=== PATIENT | female | born 1935 | race Caucasian/White ===

== ENCOUNTER 2016-09-16 17:54 | Inpatient (IN) | payer MEDICARE, OTHER ==
[~2016-09-16] VITALS: Ht 162.6 cm; Wt 86.0 kg
[~2016-09-16 17:54] MED LIST: ALDA25TA2 PO; AMLO10TA PO; ASPI1TAB PO; ATOR40TA PO; AVAP300T23 PO; BENI40TA5 PO; CALCTAB68 PO; CLON-412 PO; CORE25TA PO; EXEM25TA PO; GLIP10TA6 PO; HYGROTON PO; LANTINJ4 SC; LORA-376 PO; MAGN64TASA PO; METF500T PO; METO100T PO; PARO20TA2 PO; TYLE325T5 PO
[2016-09-16 19:35] LABS: BASO % 0.6 % (0.0-1.0); EOS # 0.2 K/mm3 (0.0-0.50); EOS % 2.8 % (0.0-3.0); LARGE UNSTAINED CELL # 0.1 K/mm3 (0.0-0.4); LARGE UNSTAINED CELL % 1.1 % (0.0-4.0); LYMPH # 1.1 K/mm3 (1.5-4.5); LYMPH % 15.4 % (24.0-44.0); MEAN CORPUSCULAR HEMOGLOBIN 29.6 pg (27.0-33.0); MEAN CORPUSCULAR HGB CONC 32.6 g/dl (32.0-36.5); MEAN CORPUSCULAR VOLUME 90.8 fl (80.0-96.0); MONO # 0.3 K/mm3 (0.0-0.8); MONO % 3.6 % (0.0-5.0); NEUTROPHILS # 5.3 K/mm3 (1.8-7.7); NEUTROPHILS % 76.5 % (36.0-66.0); PLATELET COUNT, AUTOMATED 200 k/mm3 (150-450); RED CELL DISTRIBUTION WIDTH 13.7 % (11.5-14.5); WHITE BLOOD COUNT 6.9 K/mm3 (4.0-10.0)
[2016-09-16 19:38] LABS: INR 0.94
[2016-09-16 19:42] LABS: CALCIUM LEVEL 9.4 MG/DL (8.8-10.2); CREATININE FOR GFR 1.24 MG/DL (0.55-1.02); GLOMERULAR FILTRATION RATE 44.3 (>32); POTASSIUM SERUM 4.4 MEQ/L (3.5-5.1)
--- NOTE | 2016-09-16 20:10 | REPUSA ---
CLINICAL HISTORY: DYSARTHRIA. TECHNIQUE: Multiple axial CT images were obtained through the brain without IV contrast material. COMMENTS: There is normal configuration of sella turcica. There are no intra or extra-axial collections. There is no mass effect or midline shift. There is no evidence of hematoma formation. No hydrocephalus is p resent. The ventricles are symmetrical. No abnormal calcifications are present. There is diffuse age-appropriate cerebellar and cerebral atrophy with proportionally dilated ventricl es and cortical sulci. There are bilateral periventricular and subcortical white matter hypolucencies compatible with mild c hronic microvascular disease. Otherwise, no significant focal abnormalities are seen either in the posterior fossa or supratentoria l compartment. IMPRESSION: 1. Age-appropriate cerebellar and cerebral atrophy. 2. Mild chronic microvascular disease. 3. No evidence of acute intracranial pathology. Thank you for your kind referral of this patient.
[2016-09-16] MEDS ORDERED: HumaLOG INSULIN (NovoLOG) PER UNIT SC SCH (21:00)
[2016-09-16] MEDS: MAGNESIUM CHLORIDE 64 MG TABCR (SLO MAG) PO SCH (21:00)
[2016-09-16] MEDS ORDERED: ATORVASTATIN 20 MG TAB PO SCH (21:00)
[2016-09-16] MEDS ORDERED: GLUCAGON FOR INJ 1 MG VIAL (J1610) SC PRN (23:15)
[2016-09-16] MEDS ORDERED: DEXTROSE 50% 50 ML SYRINGE IV PRN (23:15)
[2016-09-16] MEDS ORDERED: GLUCOSE 4 GM CHEW TABLET PO PRN (23:15)
[2016-09-17] MEDS ORDERED: IRBE150T12 PO
[2016-09-17] MEDS ORDERED: CHLO125TA PO
[2016-09-17] MEDS ORDERED: METF1000 PO
[2016-09-17] MEDS ORDERED: VITMTA PO (00:02)
[2016-09-17] MEDS ORDERED: POTA10CA PO (00:02)
[2016-09-17] MEDS ORDERED: GABA300C3 PO (00:02)
--- NOTE | 2016-09-17 00:30 | REPUSA ---
CLINICAL HISTORY: Transient ischemic attack. COMMENTS: Real time sonography with duplex Doppler of the carotid arteries bilaterally is performed without [place] or studies for comparison. Bilateral atheromatous plaques of the common carotid arteries extending to the internal and external carotid arteries. Normal peak systolic velocities are noted. Antegrade flow in the vertebral arteries. IMPRESSION: Bilateral less than 50% narrowing of the internal carotid arteries. Thank you for your kind referral of this patient.
[2016-09-17 01:10] VITALS: BP 152/79
[2016-09-17] MEDS ORDERED: ACETAMINOPHEN TAB 650MG DOSE (2X325MG) PO PRN (02:15)
[2016-09-17] MEDS: POTASSIUM CHLORIDE 10 MEQ SR TABLET PO SCH ×2 (02:41→08:37)
[2016-09-17] MEDS: GABAPENTIN 300 MG CAP PO SCH ×3 (02:41→17:34)
[2016-09-17] MEDS: LORazepam 0.5 MG TAB PO SCH ×2 (02:41→08:37)
[2016-09-17 04:19] VITALS: BP 131/73
[2016-09-17 05:45] LABS: BASO % 0.4 % (0.0-1.0); EOS # 0.1 K/mm3 (0.0-0.50); EOS % 2.2 % (0.0-3.0); LARGE UNSTAINED CELL # 0.1 K/mm3 (0.0-0.4); LARGE UNSTAINED CELL % 1.2 % (0.0-4.0); LYMPH # 1.1 K/mm3 (1.5-4.5); LYMPH % 16.2 % (24.0-44.0); MEAN CORPUSCULAR HEMOGLOBIN 29.6 pg (27.0-33.0); MEAN CORPUSCULAR HGB CONC 32.5 g/dl (32.0-36.5); MEAN CORPUSCULAR VOLUME 91.2 fl (80.0-96.0); MONO # 0.3 K/mm3 (0.0-0.8); PLATELET COUNT, AUTOMATED 191 k/mm3 (150-450); RED CELL DISTRIBUTION WIDTH 13.8 % (11.5-14.5); WHITE BLOOD COUNT 6.6 K/mm3 (4.0-10.0)
[2016-09-17 05:53] LABS: ALBUMIN 3.5 GM/DL (3.2-5.2); ALBUMIN/GLOBULIN RATIO 1.03 (1.00-1.93); BILIRUBIN,TOTAL 0.5 MG/DL (0.2-1.0); CALCIUM LEVEL 8.8 MG/DL (8.8-10.2); CREATININE FOR GFR 1.17 MG/DL (0.55-1.02); GLOMERULAR FILTRATION RATE 47.4 (>32); MAGNESIUM LEVEL 2.3 MG/DL (1.8-2.4); POTASSIUM SERUM 4.4 MEQ/L (3.5-5.1); TOTAL PROTEIN 6.9 GM/DL (6.4-8.2)
--- NOTE | 2016-09-17 06:35 | HPE ---
DATE OF ADMISSION: 09/16/2016 REASON FOR ADMISSION: Transient ischemic attack (TIA) like symptoms. PRIMARY CARE PROVIDER: Dr. Celeste. 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 The patient's daughter was over at the house to bring her father into the hospital for shortness of breath when she noted that her mom started to have an unsteady gait and confused speech. She checked her blood pressure and it was found to be elevated. She called the ambulance and brought her mother into the hospital. In the emergency room, the patient underwent a CT scan which showed age appropriate cerebral and cerebellar atrophy, mild chronic microvascular disease, no evidence of acute pathology. Vascular ultrasound was also done and showed bilateral less than 50% narrowing of the internal carotids. Blood pressure on arrival was slightly elevated at 161/79, but had improved to 140/71 on repeat. The hospitalist was called for the admission for observation for possible TIA-like symptoms. Upon my exam, the patient did not have any confusion at this time or slurred speech. She had no focal deficits. Denied any chest pain or shortness of breath. Denied any nausea or vomiting. Denied any diaphoresis or chills. Denied any urinary or bowel incontinence. Denied any paresthesias or tingling. REVIEW OF SYSTEMS: 12-point review of systems was obtained, all of which was negative except for those mentioned above. PAST MEDICAL HISTORY: Significant for third degree heart block, diabetes, hypertension, aortic regurgitation, breast cancer a year ago, hyperlipidemia, hypothyroidism, and anxiety. PAST SURGICAL HISTORY: Significant for pacemaker placement, bilateral knee surgery and cataract surgery. ALLERGIES: CODEINE. SOCIAL HISTORY: The patient denies any alcohol or tobacco use. HOME MEDICATIONS (include): - Tylenol 650 mg by mouth every 4 hours as needed for pain - Norvasc 10 mg by mouth daily - aspirin 81 mg by mouth daily - atorvastatin 40 mg by mouth at bedtime - chlorthalidone 12.5 mg by mouth daily - gabapentin 300 mg by mouth three times a day - glipizide 10 mg by mouth twice a day - Lantus 18 units subcutaneously at night - irbesartan 150 mg by mouth daily - lorazepam 0.5 mg by mouth twice a day - magnesium chloride 64 mg tablet by mouth twice a day - metformin 500 mg by mouth daily and 1000 mg by mouth at bedtime - multivitamin 1 tablet by mouth daily - paroxetine 20 mg by mouth daily - potassium chloride 10 mEq by mouth twice a day - spironolactone 25 mg by mouth daily FAMILY HISTORY: Noncontributory. PHYSICAL EXAMINATION: Vitals: On admission, blood pressure was 161/79, temperature 97, pulse 76, respiratory rate 18, pulse oximetry 97% on room air. HEENT: Pupils equal round and react to light and accommodation. Neck supple. No jugular venous distention (JVD). Lungs: Clear to auscultation (CTA) bilaterally. Abdomen: Soft, nontender, nondistended. Extremities: No clubbing, cyanosis or edema. Neurologic: Cranial nerves II-XII grossly intact. No focal deficits. LABORATORY FINDINGS: WBC 6.9, hemoglobin 12.5, hematocrit 38.1, platelet count 200. Sodium 142, potassium 4.4, chloride 104, BUN 22, creatinine 1.24, fasting glucose 163, INR 0.94. CT scan as above. Carotid ultrasound as above. ASSESSMENT/PLAN: 1. Transient ischemic attack like symptoms which had resolved by the time the patient arrived to the emergency room. There is no documentation of any focal deficits. The patient is able to move arms and legs. No signs of facial droop. Speech appears to be normal. We will continue to monitor on telemetry. The patient was unable to get a MRI due to patient having a pacemaker. CT scan was unremarkable. We will order a morning lipid panel. Continue neurologic checks every 4 hours. 2. History of hypertension. We will resume the patient's home medications. 3. History of lower extremity edema. Will continue the patient's spironolactone. 4. History of diabetes. Will start the patient on sliding scale with Accu-Cheks before meals and at bedtime. Consistent carbohydrate diet. 5. History of hyperlipidemia. Continue Lipitor 40 mg by mouth daily. 6. History of anxiety. Continue the patient's home medications. 7. Deep vein thrombosis (DVT) prophylaxis. Sequential compression devices (SCDs) while in bed.
[2016-09-17 08:00] VITALS: BP 138/74
[2016-09-17] MEDS: MAGNESIUM CHLORIDE 64 MG TABCR (SLO MAG) PO SCH (08:34)
[2016-09-17] MEDS: HumaLOG INSULIN (NovoLOG) PER UNIT SC SCH ×3 (08:35→17:35)
[2016-09-17] MEDS ORDERED: CARVedilol 12.5 MG TAB PO SCH (09:00)
[2016-09-17] MEDS ORDERED: IRBESARTAN 150 MG TAB PO SCH (09:00)
[2016-09-17] MEDS ORDERED: PARoxetine 20 MG TAB PO SCH (09:00)
[2016-09-17] MEDS ORDERED: SPIRONOLACTONE 25 MG TAB PO SCH (09:00)
[2016-09-17] MEDS ORDERED: CHLORTHALIDONE 12.5MG PER 1/2 TABLET PO SCH (09:00)
[2016-09-17] MEDS ORDERED: ASPIRIN 81 MG ENTERIC TAB PO SCH (09:00)
[2016-09-17] MEDS ORDERED: amLODIPine 10 MG TAB PO SCH (09:00)
[2016-09-17] MEDS ORDERED: MULTIVITAMINS/MINERALS THERAP 1 TAB PO SCH (09:00)
[2016-09-17] MEDS ORDERED: ENOXAPARIN 30 MG/0.3 ML SYR (J1650) SC SCH (09:00)
--- NOTE | 2016-09-17 10:57 | IPN ---
DATE: 09/17/2016 Time patient was seen was at 9 a.m. Patient has been seen and examined at bedside. No acute event overnight. Patient, however does have tachycardia on the event strips. Patient, herself feels better. Denies any chest pain, trouble breathing, abdominal pains, nausea , vomiting, diarrhea, or constipation. Denies any weakness on any side of her body. Admits to numbness at her heels, which was chronic. Denies any changes in vision, smell, hearing or taste. PHYSICAL EXAMINATION: VITAL SIGNS: Temperature 97.6, pulse 66, respirations 18, blood pressure 138/74 , and oxygen was satting 95% on room air. GENERAL: Patient is a pleasant, elderly female who was alert, awake, oriented times three, does not appear to be in distress, resting comfortably in bed with head elevated at 45 degree angle. HEENT: Normocephalic, atraumatic. Extraocular motor intact. Mucosa moist. NECK: Supple. No neck lymphadenopathy. CARDIOVASCULAR: Regular rate and rhythm. S1, S2. Patient does have a 3/6 systolic heart murmur. LUNGS: Clear to auscultate bilaterally. No wheeze, rales or rhonchi. ABDOMEN: Positive bowel sounds. Soft. Nontender. Nondistended. No peritoneal signs. No ecchymosis. EXTREMITIES: No edema, clubbing or cyanosis. SKIN: Warm and dry. NEUROLOGIC: Cranial nerves II-XII intact. Qatmou-cf-vnca was somewhat sluggish on both side. However, there is no change of sensation. Muscle strength was 5/ 5 in bilateral upper and lower extremity. PSYCHIATRIC: Normal mood and affect. LABORATORY DATA: WBC 6.6, hemoglobin 12.1, hematocrit is 37.2, with platelet count of 191 and MCV of 91.2. Sodium 141, potassium 4.4, chloride 104, bicarbonate 29, anion gap 8, BUN 17, creatinine 1.17, GFR 47.4, fasting glucose 171, calcium 8.8, magnesium 2.3, AST 18, ALT 29, alkaline phosphatase 115, total protein 6.9, albumin 3.5, triglyceride 109, cholesterol 127, LDL 61.2, HDL 44. Patient's PT yesterday was 12.7, INR 0.94, PTT 28.1. Accu-Chek glucose last night was 168. Patient does have a carotid duplex ultrasound. It shows bilateral less than 50% narrowing of internal carotid artery. Patient had a CT head without contrast yesterday at 7:20. It shows age-appropriate cerebellar and cerebral palsy. Mild chronic microvascular disease. No evidence of acute intracranial pathology. ASSESSMENT AND PLAN: 80-year-old female with past medical history of third degree heart block, diabetes, hypertension, aortic regurgitation, breast cancer a year ago, hyperlipidemia, hypothyroidism, anxiety, pacemaker, presented with: 1. Transient ischemic attack (TIA). Resolved by the time patient arrived patient arrived in the emergency room (ER). Patient does not have any neurological changes this morning. CT scan of the head was unremarkable last night. Patient was unable to have MRI due to pacemaker. Patient's repeat head scan has been ordered for tomorrow. Patient's lipid panel was within normal limits. Continue neuro checks. We will also order an echo, physical therapy (PT), occupational therapy (OT) and continue to monitor patient. 2. History of hypertension. Will continue patient's home medications. 3. History of lower extremity edema. Continue spironolactone. 4. History of diabetes. Continue patient on sliding scale with Accu-Cheks before meals and at bedtime with consistent carbohydrate diet. 5. Hyperlipidemia. Continue Lipitor. 6. History of anxiety. Continue home medication. 7. Deep vein thrombosis (DVT) prophylaxis. Sequential compression devices (SCDs). Will repeat CT head tomorrow. DISPOSITION: Will followup with repeat CT head. Will followup with echo and PT , OT and continue to monitor patient. Continue neuro check. Patient has been discussed with attending doctor, Dr. Sargent. My preceptor for this patient encounter was Rebecca Sargent MD. The preceptor was physically present in the building during the encounter and was fully available. As needed, all aspects of the patient interview, examination, medical decision making process, and medical care plan development were reviewed and approved by the preceptor. The preceptor is aware and concurs with the plan as stated in the body of this note and will attest to such by his/her co-signature. Addendum: Patient was found to be suddenly hypotensive later in the afternoon. Dr. Sargent ordered Cardiac markers and found patient to have elevated troponin 2.9. Patient was then emergently transferred out for the NSTEMI I have both independently examined this patient as well as reviewed the note. I have discussed in detail with the resident the findings and plan of treatment as documented in the residents note. I will continue to follow the patient and offer further guidance to the patients care as necessary during this hospital stay. Rebecca TAM
[2016-09-17] MEDS ORDERED: SLF 3 ML SYR IV PRN (11:30)
[2016-09-17 12:00] VITALS: BP 116/63
[2016-09-17 12:20] VITALS: BP 130/72
[2016-09-17] MEDS ORDERED: SLF 3 ML SYR IV SCH (14:00)
[2016-09-17] MEDS ORDERED: NS 1,000 ML IV SCH (15:15)
--- NOTE | 2016-09-17 15:35 | REP ---
CT HEAD WITHOUT CONTRAST: HISTORY: TIAs. COMPARISON: 09/16/2016 Areas of decreased attenuation are present in the periventricular white matter. This represents small vessel ischemic disease. There is no intraparenchymal hemorrhage, mass or midline shift. The ventricular system and cortical sulci are dilated consistent with minimal volume loss. There is no extracerebral collection. The visualized sinuses are clear. IMPRESSION: 1. Small vessel ischemic disease. 2. Minimal volume loss. Signed by Darwin German MD 09/17/2016 03:37 P
[2016-09-17 15:46] LABS: ABG BASE EXCESS 3.2 (-2.0-2.0); ABG HCO3 27.5 MEQ/L (22.0-26.0); ABG PARTIAL PRESSURE CO2 40.7 mmHg (35.0-45.0); ABG STANDARD HCO3 27.2 MEQ/L (22.0-26.0); ABG TOTAL CO2 28.7 MEQ/L (23.0-31.0); ABG pH (ARTERIAL) 7.447 UNITS (7.350-7.450)
[2016-09-17 16:00] VITALS: BP 125/63
[2016-09-17] MEDS ORDERED: CLOPIDOGREL 75 MG TAB PO STA (16:37)
--- NOTE | 2016-09-17 17:16 | ECGEPIP ---
Stationary ECG Study [facility] Test Date: 2016-09-17 Pat Name: JONH VILLEGAS Department: Room: [place] [address] Gender: F Architecture Analyst: GHANSHYAM : 1935 Requested By: WICHO BENNETT Order Number: [id number] Reading MD: Emily Dawkins Measurements Intervals [place] Rate: 62 P: 58 [place]: 164 QRS: -89 QRSD: 194 T: 44 QT: 499 QTc: 510 Interpretive Statements ELECTRONIC VENTRICULAR PACEMAKER NSR ABNORMAL RHYTHM ECG MORE V PACING NO ATRIAL PACING C/W 10/20/14 Electronically Signed On 09-17-2016 17:15:48 EST by Emily Dawkins
[2016-09-17] MEDS ORDERED: CLOP75TA2 PO (17:32)
[2016-09-17] MEDS ORDERED: AVAP75TA PO (17:32)
[2016-09-17] MEDS ORDERED: CARV6.25 PO (17:32)
--- NOTE | 2016-09-17 19:10 | DSES ---
DATE OF ADMISSION: 09/16/2016 DATE OF DISCHARGE: Patient is transferred to [facility] for possible cardiac catheterization September 17, 2016. PRIMARY CARE PROVIDER: Dr. Celeste NEUROLOGIST: Dr. Guerrero SEWER SYSTEM SUPERVISOR: Dr. Spencer FINAL DIAGNOSES: Non-ST elevation myocardial infarction (NSTEMI). Transient ischemic attack (TIA). Hypertension. History of lower extremity edema. History of diabetes, type 2. History of dyslipidemia. Anxiety. HISTORY OF PRESENT ILLNESS: This is an 80-year-old female patient with underlying medical history of third-degree heart block with pacemaker, type 2 diabetes, hypertension, aortic regurgitation, who presented to the emergency room with her daughter after she was having TIA symptoms. The patient's daughter, who is a nurse, was in the process of bringing her to the hospital for shortness of breath and had noticed that the patient's mother was unsteady and confused with slurred speech, with also left arm weakness. Subsequently, called ambulance and brought her mother into the hospital. The patient underwent CT scan, which were negative other than some age-appropriate changes and cerebral atrophy and microvascular changes. No evidence of acute pathology. Ultrasound Doppler of the carotids shows bilateral less than 50% narrowing of internal carotid. Blood pressure on arrival was 161/79. The patient has subsequently improved. Hospitalist was called for admission of the patient to the hospital. The patient was admitted to the hospital, given aspirin, and the patient's aspirin and statin was continued. Echocardiogram was ordered. Neurologic check was observed. The patient's lab was repeated and followed. The patient's blood pressure medication was restarted. During the day today, the patient had an episode of increasing lethargy and confusion again. At that time, blood pressure was 90/50 and the patient was not tachycardic with heart rate of 64. The patient was alert and oriented at that time but was just sleepy and drowsy. Subsequently, CT head was repeated as well as given intravenous (IV) fluids and EKG was done showing ventricular paced rhythm and cardiac enzyme was also sent. Cardiac enzyme returned with a troponin of 2.99. Subsequently, the case was discussed with Dr. Spencer. Given patient with diabetes and EKG showing ventricular (v) pace, the patient could have a silent ischemic myocardial event, given patient did admit with TIA, repeat CT scan was negative. Case was discussed with Dr. Spencer and Dr. Guerrero. Plavix loading of 150 mg was given and the patient was placed on aspirin and Plavix and Lipitor, aspirin 81 mg, Plavix 75 mg and Lipitor 40 mg by mouth nightly. [facility] was contacted for transfer. The patient's blood pressure medication was also discontinued and adjusted. The patient's blood pressure subsequently improved ,and the patient's mental status returned to baseline. The decision was made that the patient should be transferred for possible catheterization at [facility] and recommended by Dr. Spencer. Subsequently, arrangements are made for the patient to be transferred to [facility]. VITAL SIGNS: Temperature 97.3, pulse 64, respirations 20, blood pressure 125/63, pulse oximetry 95% on room air. LABORATORY: WBC 6.6, hemoglobin and hematocrit 12.1 over 37.2, platelets 191. Chemistry: Sodium 141, potassium 4.4, chloride 104, bicarbonate 29, BUN 17, creatinine 1.17, total CK 170, troponin 2.99. DISCHARGE MEDICATIONS: - Coreg 6.25 mg by mouth twice a day - Plavix 75 mg by mouth daily - Avapro 75 mg by mouth daily, decreased from 150 mg - acetaminophen 650 mg by mouth nightly - aspirin 81 mg by mouth daily - Lipitor 40 mg by mouth daily - vitamin D one tablet by mouth daily - gabapentin 300 mg by mouth three times a day - glipizide 10 mg by mouth twice a day - Lantus insulin 18 units subcu nightly - The patient was on Ativan 0.5 mg by mouth twice a day at home. - magnesium chloride 64 mg by mouth twice a day - metformin 500 mg by mouth daily; metformin has been on hold given possibility of cardiac catheterization - multivitamin one tablet by mouth daily - Paxil 20 mg by mouth daily - potassium chloride 10 mEq by mouth twice a day - spironolactone 25 mg by mouth daily DISCHARGE INSTRUCTIONS: The patient was instructed to followup with Cardiology at [facility] for further care, followup with telemetry monitoring, neurologic checks, further care as per cardiology and [facility], followup with primary care provider after discharge as well as cardiology after discharge and neurology after discharge. YONATAN
--- NOTE | 2016-09-17 20:30 | ECGEPIP ---
Stationary ECG Study [facility] - ED Test Date: 2016-09-16 Pat Name: JONH VILLEGAS Department: Room: [place] [address] Gender: F Application Manager: ruiz : 1935 Requested By: GRACIA ADLER Order Number: [id number] Reading MD: Damon Reyes Measurements Intervals [place] Rate: 70 P: 85 [place]: 170 QRS: -89 QRSD: 194 T: 37 QT: 468 QTc: 508 Interpretive Statements ELECTRONIC VENTRICULAR PACEMAKER ABNORMAL RHYTHM ECG Electronically Signed On 09-17-2016 20:30:05 EST by Damon Reyes
[2016-09-17] MEDS ORDERED: CARVedilol 6.25 MG TAB PO SCH (21:00)
[2016-09-17] MEDS ORDERED: LEVEMIR (INSULIN DETEMIR) 1 UNITS/0.01ML SC SCH (21:00)
--- NOTE | 2016-09-18 06:04 | ECHO ---
DATE OF PROCEDURE: 09/17/2016 REFERRING PHYSICIAN: Dr. Samir Rizvi INDICATION: Transient ischemic attack (transient cerebral ischemia unspecified). HEIGHT: 157 cm. WEIGHT: 82 kg. MEASUREMENTS: Left atrium: 4.3 cm Ventricular septum: 1.59 cm Posterior wall: 1.60 cm Left ventricle diastole: 3.6 cm Aortic root: 2.8 cm LVOT: 1.7 cm Inferior vena cava: 1.6 cm DOPPLER MEASUREMENTS: Moderate aortic stenosis. Very mild aortic regurgitation. Peak aortic gradient: 28 mmHg Mean aortic valve gradient: 18 mmHg Aortic valve velocity: 263 cm/s Aortic valve VTI: 62.3 cm Aortic valve area (VTI): 1.07 cm2 LVOT velocity: 136 cm/s LVOT VTI: 29.4 cm Mild mitral regurgitation. Mild mitral stenosis. Mitral E velocity (CW): 1.87 cm/s Mean aortic valve gradient: 7 mmHg Mild tricuspid regurgitation. Estimated right ventricle systolic pressure 38 mmHg assuming an atrial pressure of 5 mmHg. DESCRIPTION: Rhythm was AV sequential paced rhythm and at times probably sinus rhythm with P-synchronous ventricular pacing. This was a moderately technically difficult echocardiogram. No pericardial effusion. CONCLUSIONS: 1. Degenerative, calcific aortic valve disease with moderate aortic stenosis and mild aortic regurgitation. 2. Severe mitral annular calcification with mild mitral stenosis and mild mitral regurgitation. 3. Moderately-severe concentric left ventricular hypertrophy with mild reduction in left ventricle cavity size. No regional wall motion abnormalities. No paradoxical septal motion despite ventricular pacing. Normal LV systolic function. LVEF 70% by visual estimate. Unable to assess LV diastolic function in the setting of severe mitral annular calcification with mitral stenosis. 4. Mild left atrial dilatation. 5. Suggestive of mild elevation of estimated right ventricle systolic pressure. 6. Presence of endocardial right ventricular lead and probably right atrial lead.
[2016-09-18] MEDS ORDERED: ASPIRIN 81 MG CHEW TABLET PO SCH (09:00)
[2016-09-18] MEDS ORDERED: ASPIRIN 325 MG TAB PO SCH (09:00)
[2016-09-18] MEDS ORDERED: IRBESARTAN 75MG TABLET PO SCH (09:00)
[2016-09-18] MEDS ORDERED: CLOPIDOGREL 75 MG TAB PO SCH (09:00)
--- NOTE | 2016-09-18 10:35 | CR ---
DATE OF CONSULTATION: 09/17/2016 REFERRING PHYSICIAN: Dr. Sargent. HISTORY: The patient is an 80-year-old female who was admitted to the hospital secondary to complaints of unsteady gait associated with mumbled speech. According to the history available, the patient's daughter was at her house to bring her father into the hospital because of complaints of shortness of breath. When she was at her mother's home, she noted that she suddenly became unsteady on her feet and her speech became mumbled. Due to this, emergency medical center manager (EMT) was called in and she was brought to the emergency room (ER) here at the [facility] where she had a CT scan of the brain performed which did not show any acute bleed or infarct. She was continued on her aspirin a day. According to the patient, her symptoms started at about 04:30 p.m. yesterday. She got up and noted that she had difficulty walking. Her speech was also slightly mumbled at that time. She developed a throbbing headache behind her right eye. She also felt that her left arm and leg where heavy and mildly weak. She however does not recall having any dizzy spells, vertigo, diplopia or blurred vision. She did not have any neck pain at that time but she did have pain in the left shoulder which is chronic. Her symptoms persisted till about 07:00 p.m. after which she felt better. Her headache has resolved. She denies any heaviness in her left arm or leg. There is also no complaint of difficulty walking at the present time. Her repeat CT scan of the brain was performed this afternoon which once again did not show any evidence of acute bleed or infarct. This study did show mild to moderate small vessel ischemic disease. Her carotid ultrasound shows less than 50% stenosis bilaterally. Her CPK was noted to be elevated this evening at 2.88. Due to this, she is being transferred to [facility] in [place]. MEDICATIONS: Her medications prior to admission here included: - Norvasc - aspirin 81 mg daily - atorvastatin - chlorthalidone - Neurontin 300 mg three times a day - Glipizide, insulin - lorazepam 0.5 mg twice a day - magnesium chloride - metformin - Paxil 20 mg daily - multivitamin supplements - potassium PAST MEDICAL HISTORY: The patient has known history of: 1. Hypertension. 2. Coronary artery disease. 3. Third degree heart block. 4. Status post pacemaker. 5. Diabetes. 6. Unsteady gait. FAMILY HISTORY: The patient's family history is not available, although her mother and father are both . According to the patient, her mother did have problems with her heart and she also had hypertension. PERSONAL AND SOCIAL HISTORY: The patient lives with her . There is no past medical history of smoking, alcohol and drug abuse. All other systems were reviewed and found to be noncontributory. PHYSICAL EXAMINATION: GENERAL: On examination the patient does not appear in any discomfort. She is pleasant to interact with. Her posture is normal. VITAL SIGNS: Her blood pressure is 130/70. Pulse is 65 per minute. Respirations are 18 per minute. Her temperature is 98.4 degrees Fahrenheit. She is 5 feet 4 inches tall. She weighs about 86 kg. NECK: Her neck is supple. There is no carotid bruit audible. She does not have any tenderness in her cervical spine or shoulder muscles. HEENT: Her ear, nose and throat examination is normal. LUNGS: Her lungs are clear to auscultation. HEART: Her heart is regular rhythm. ABDOMEN: Her abdomen is soft and nontender. EXTREMITIES: There is no ankle edema seen. The peripheral pulses are normally palpable. NEUROLOGIC: She is oriented to time and place. Her speech is fluent. Extraocular movements are intact. There is no horizontal or vertical nystagmus seen. Her pupils are about 3 mm in size and reactive to light. The consensual light reflex is present bilaterally. Visual rivera are full to confrontational testing. Her motor examination does not show any focal motor weakness in her upper or lower extremities except she has restricted range of motion in her left shoulder joint. There are no resting or postural tremors of the hands seen. Her muscle tone is normal. The sensation to fine touch and pinprick is equal on both sides of the body. Deep tendon reflexes are 2+ and symmetrical with equivocal plantar reflexes. Her gait is not tested. DIAGNOSTIC STUDIES: The patient's CT scan of the brain performed twice since yesterday does not show any evidence of acute bleed or infarct. This study does show mild small vessel ischemic disease. There is also some associated generalized atrophy. The carotid duplex study shows less than 50% stenosis bilaterally. Her CBC shows white cell count of 6900, hemoglobin 12.5, hematocrit 38.1 and platelets 200,000. ASSESSMENT 1. Episode of unsteady gait. 2. Mild hemiparesis with heaviness. 3. Likely transient ischemic attack (TIA) in the right internal carotid artery (ICA) distribution. PLAN: 1. Vasculitis workup. 2. Aspirin 81 mg by mouth daily. 3. Plavix 75 mg by mouth daily. 4. Physical therapy/occupational therapy (PT/OT)evaluation and treatment. 5. Continue with other medications. Thank you very much for this consultation. cc: Rebecca Sargent MD
== END 2016-09-17 19:21 | disposition short-term general hospital (02) | DRG 69 ==
LOC: M ED 20:39 → M ED INP 23:04 → M PCU 09-17 01:10
PROVIDERS: ADMIT Internal Medicine; ATTEND Hospitalist
DX: G45.9 Transient cerebral ischemic attack, unspecified (principal); I21.4 Non-ST elevation (NSTEMI) myocardial infarction; I44.2 Atrioventricular block, complete; E11.9 Type 2 diabetes mellitus without complications; I10 Essential (primary) hypertension; I35.1 Nonrheumatic aortic (valve) insufficiency; E78.5 Hyperlipidemia, unspecified; E03.9 Hypothyroidism, unspecified; R26.81 Unsteadiness on feet; F41.9 Anxiety disorder, unspecified; Z95.0 Presence of cardiac pacemaker; Z85.3 Personal history of malignant neoplasm of breast; Z79.891 Long term (current) use of opiate analgesic; Z79.82 Long term (current) use of aspirin; Z79.84 Long term (current) use of oral hypoglycemic drugs; Z79.4 Long term (current) use of insulin; Z79.899 Other long term (current) drug therapy

== ENCOUNTER → 2016-10-16 | Outpatient (REF) ==
[~2016-10-16] MED LIST changes: +AVAP75TA PO; +CARV6.25 PO; +CHLO125TA PO; +CLOP75TA2 PO; +GABA-282 PO; +IRBE150T12 PO; +METF1000 PO; -PARO20TA2 PO; +PARO20TA3 PO; +POTA10CA PO; +VITMTA PO
[2016-10-16 08:44] LABS: MEAN CORPUSCULAR HEMOGLOBIN 29.9 pg (27.0-33.0); MEAN CORPUSCULAR HGB CONC 32.3 g/dl (32.0-36.5); MEAN CORPUSCULAR VOLUME 92.4 fl (80.0-96.0); RED CELL DISTRIBUTION WIDTH 14.2 % (11.5-14.5); WHITE BLOOD COUNT 4.7 K/mm3 (4.0-10.0)
[2016-10-16 09:06] LABS: CREATININE FOR GFR 1.29 MG/DL (0.55-1.02); GLOMERULAR FILTRATION RATE 42.3 (>32); MAGNESIUM LEVEL 1.9 MG/DL (1.8-2.4); POTASSIUM SERUM 3.9 MEQ/L (3.5-5.1)
== END ==
LOC: SKLAB2 07:07
PROVIDERS: ATTEND Internal Medicine
DX: E11.9 Type 2 diabetes mellitus without complications (principal)

== ENCOUNTER 2018-05-09 02:55 | Inpatient (IN) | payer MEDICARE, OTHER, MEDICAID ==
[2018-05-09] MEDS: FUROSEMIDE 100 MG/10 ML VIAL (J1940) IV (03:15)
[2018-05-09 03:34] LABS: BASO % 0.2 % (0.0-1.0); EOS # 0.1 10^3/uL (0.0-0.50); EOS % 0.7 % (0.0-3.0); HEMATOCRIT 40.6 % (36.0-47.0); HEMOGLOBIN 12.9 g/dl (12.0-15.5); IMMATURE GRANULOCYTE % 0.6 % (0-3.0); LYMPH # 1.6 10^3/uL (1.5-4.5); LYMPH % 9.1 % (24.0-44.0); MEAN CORPUSCULAR HEMOGLOBIN 30.6 pg (27.0-33.0); MEAN CORPUSCULAR HGB CONC 31.8 g/dl (32.0-36.5); MEAN CORPUSCULAR VOLUME 96.2 fl (80.0-96.0); MONO # 0.5 10^3/uL (0.0-0.8); NEUTROPHILS # 15.1 10^3/uL (1.8-7.7); NEUTROPHILS % 86.4 % (36.0-66.0); PLATELET COUNT, AUTOMATED 231 10^3/uL (150-450); RED BLOOD COUNT 4.22 10^6/uL (4.00-5.40); RED CELL DISTRIBUTION WIDTH 14.6 % (11.5-14.5); WHITE BLOOD COUNT 17.4 10^3/uL (4.0-10.0)
[2018-05-09] MEDS: IPRATROPIUM 0.5MG/ALBUTEROL 2.5MG INH SOL UD 3ML (DUONEB)(J7620) NEB ×3 (03:35→04:12)
[2018-05-09 03:57] LABS: ANION GAP 9 MEQ/L (8-16); BLOOD UREA NITROGEN 25 MG/DL (7-18); CARBON DIOXIDE LEVEL 29 MEQ/L (21-32); CHLORIDE LEVEL 105 MEQ/L (98-107); CPK CREATINE PHOSPHOKINASE 221 U/L (26-192); CREATININE FOR GFR 1.21 MG/DL (0.55-1.30); GLOMERULAR FILTRATION RATE 45.4 (>32); GLUCOSE, FASTING 242 MG/DL (70-100); MB/CK RELATIVE INDEX 2.17 (< OR =4); NT-PRO BNP 1016 PG/ML (<450); POTASSIUM SERUM 4.2 MEQ/L (3.5-5.1); SODIUM LEVEL 143 MEQ/L (136-145); TROPONIN I 0.24 NG/ML (< 0.10)
[2018-05-09] MEDS: NITROGLYCERIN 2% OINT 1 GM *U/D* PKT TOP (04:07)
[2018-05-09 04:11] LABS: ABG BASE EXCESS -4.3 (-2.0-2.0); ABG HCO3 20.5 MEQ/L (22.0-26.0); ABG O2 SATURATION 98.6 % (95.0-99.0); ABG PARTIAL PRESSURE CO2 36.9 mmHg (35.0-45.0); ABG PARTIAL PRESSURE O2 134.1 mmHg (75.0-100.0); ABG STANDARD HCO3 20.9 MEQ/L (22.0-26.0); ABG TOTAL CO2 21.7 MEQ/L (23.0-31.0); ABG pH (ARTERIAL) 7.363 UNITS (7.350-7.450)
[2018-05-09 04:13] LABS: LACTIC ACID SEPSIS PROTOCOL 2.4 MMOL/L (0.4-2.0)
[2018-05-09] MEDS ORDERED: ACETAMINOPHEN TAB 650MG DOSE (2X325MG) PO (06:45)
[2018-05-09] MEDS ORDERED: LORazepam 0.5 MG TAB PO (06:45)
[2018-05-09] MEDS ORDERED: GLUCOSE 4 GM CHEW TABLET PO (07:45)
[2018-05-09] MEDS ORDERED: GLUCAGON FOR INJ 1 MG VIAL (J1610) SC (07:45)
[2018-05-09] MEDS ORDERED: DEXTROSE 50% 50 ML SYRINGE IV (07:45)
[2018-05-09 07:50] LABS: BASO % 0.2 % (0.0-1.0); EOS % 0.1 % (0.0-3.0); HEMATOCRIT 35.9 % (36.0-47.0); HEMOGLOBIN 11.7 g/dl (12.0-15.5); IMMATURE GRANULOCYTE % 0.3 % (0-3.0); LYMPH # 0.4 10^3/uL (1.5-4.5); MEAN CORPUSCULAR HEMOGLOBIN 30.9 pg (27.0-33.0); MEAN CORPUSCULAR HGB CONC 32.6 g/dl (32.0-36.5); MEAN CORPUSCULAR VOLUME 94.7 fl (80.0-96.0); MONO # 0.1 10^3/uL (0.0-0.8); MONO % 1.3 % (0.0-5.0); NEUTROPHILS # 10.2 10^3/uL (1.8-7.7); NEUTROPHILS % 94.1 % (36.0-66.0); PLATELET COUNT, AUTOMATED 213 10^3/uL (150-450); RED BLOOD COUNT 3.79 10^6/uL (4.00-5.40); RED CELL DISTRIBUTION WIDTH 14.6 % (11.5-14.5); WHITE BLOOD COUNT 10.9 10^3/uL (4.0-10.0)
[2018-05-09 08:09] LABS: INR 0.96; PROTHROMBIN TIME 12.9 SECONDS (12.1-14.4)
[2018-05-09 08:16] LABS: ALBUMIN 3.8 GM/DL (3.2-5.2); ALBUMIN/GLOBULIN RATIO 1.15 (1.00-1.93); ALKALINE PHOSPHATASE 110 U/L (45-117); ALT/SGPT 28 U/L (12-78); ANION GAP 13 MEQ/L (8-16); AST/SGOT 13 U/L (7-37); BILIRUBIN,DIRECT 0.1 MG/DL (0.0-0.2); BILIRUBIN,TOTAL 0.5 MG/DL (0.2-1.0); BLOOD UREA NITROGEN 30 MG/DL (7-18); C REACTIVE PROTEIN QUANTITATIV 0.69 MG/DL (0.00-0.30); CALCIUM LEVEL 8.8 MG/DL (8.8-10.2); CARBON DIOXIDE LEVEL 22 MEQ/L (21-32); CHLORIDE LEVEL 105 MEQ/L (98-107); CREATININE FOR GFR 1.52 MG/DL (0.55-1.30); GLOMERULAR FILTRATION RATE 34.9 (>32); GLUCOSE, FASTING 393 MG/DL (70-100); MAGNESIUM LEVEL 1.7 MG/DL (1.8-2.4); POTASSIUM SERUM 3.7 MEQ/L (3.5-5.1); SODIUM LEVEL 140 MEQ/L (136-145); TOTAL PROTEIN 7.1 GM/DL (6.4-8.2); TROPONIN I 0.24 NG/ML (< 0.10)
[2018-05-09] MEDS: GABAPENTIN 300 MG CAP PO ×2 (08:17→20:35)
[2018-05-09] MEDS: ENOXAPARIN 30 MG/0.3 ML SYR (J1650) SC (08:17)
[2018-05-09 08:18] LABS: BEDSIDE GLUCOSE 430 MG/DL (83-110)
[2018-05-09] MEDS: MULTIVITAMINS/MINERALS THERAP 1 TAB PO (08:18)
[2018-05-09] MEDS: POTASSIUM CHLORIDE 10 MEQ SR TABLET PO ×2 (08:18→20:34)
[2018-05-09] MEDS: CLOPIDOGREL 75 MG TAB PO (08:18)
[2018-05-09] MEDS: glipiZIDE (GLUCOTROL) 5 MG TAB PO (08:18)
[2018-05-09 08:26] LABS: ERYTHROCYTE SEDIMENTATION RATE 19 mm/hr (0-30)
[2018-05-09] MEDS ORDERED: metFORMIN (GLUCOPHAGE) 1000 MG TABLET PO (09:00)
[2018-05-09] MEDS ORDERED: ENOXAPARIN 40 MG/0.4 ML SYRINGE (J1650) SC (09:00)
[2018-05-09] MEDS ORDERED: glipiZIDE (GLUCOTROL) 5 MG TAB PO (09:00)
[2018-05-09] MEDS ORDERED: FUROSEMIDE 40 MG/4 ML VIAL (J1940) IV (09:00)
[2018-05-09] MEDS: HumaLOG INSULIN (NovoLOG) PER UNIT SC ×4 (09:20→20:36)
[2018-05-09 09:43] LABS: ESTIMATED AVERAGE GLUCOSE 157 MG/DL (60-110); HEMOGLOBIN A1c 7.1 %
[2018-05-09] MEDS: MAGNESIUM CHLORIDE 64 MG TABCR (SLO MAG) PO ×2 (10:35→20:34)
[2018-05-09 12:13] LABS: BEDSIDE GLUCOSE 421 MG/DL (83-110)
[2018-05-09 15:02] LABS: NT-PRO BNP 4009 PG/ML (<450)
[2018-05-09 15:06] LABS: CPK CREATINE PHOSPHOKINASE 154 U/L (26-192); MB/CK RELATIVE INDEX 2.47 (< OR =4); TROPONIN I 0.84 NG/ML (< 0.10)
[2018-05-09] MEDS: MAG SULF 1GM/100ML (MAG RUN) 1 GM in APPROPRIATE DILUENT 1 EA IV (15:43)
[2018-05-09] MEDS: METOPROLOL SUCC *XL* 25MG TAB (TopROL *XL*) PO (16:14)
[2018-05-09 17:21] LABS: BEDSIDE GLUCOSE 280 MG/DL (83-110)
[2018-05-09] MEDS: FUROSEMIDE 40 MG/4 ML VIAL (J1940) IV (18:38)
[2018-05-09 19:59] LABS: BEDSIDE GLUCOSE 263 MG/DL (83-110)
[2018-05-09] MEDS: SERTRALINE HCL 50 MG TAB PO (20:34)
[2018-05-09] MEDS: ATORVASTATIN 20 MG TAB PO (20:35)
[2018-05-09] MEDS: LEVEMIR (INSULIN DETEMIR) 1 UNITS/0.01ML SC (20:36)
[2018-05-09] MEDS: SLF 3 ML SYR IV ×2 (20:37→22:00)
[2018-05-09] MEDS ORDERED: CANDESARTAN 4MG TABLET PO (21:00)
[2018-05-10] MEDS: FUROSEMIDE 40 MG/4 ML VIAL (J1940) IV ×2 (00:13→06:34)
[2018-05-10] MEDS: SLF 3 ML SYR IV ×4 (00:14→22:00)
[2018-05-10 05:55] LABS: HEMATOCRIT 33.8 % (36.0-47.0); HEMOGLOBIN 11.1 g/dl (12.0-15.5); MEAN CORPUSCULAR HGB CONC 32.8 g/dl (32.0-36.5); MEAN CORPUSCULAR VOLUME 91.4 fl (80.0-96.0); PLATELET COUNT, AUTOMATED 226 10^3/uL (150-450); RED CELL DISTRIBUTION WIDTH 14.6 % (11.5-14.5); WHITE BLOOD COUNT 15.8 10^3/uL (4.0-10.0)
[2018-05-10 06:24] LABS: ANION GAP 9 MEQ/L (8-16); BLOOD UREA NITROGEN 36 MG/DL (7-18); CALCIUM LEVEL 8.8 MG/DL (8.8-10.2); CARBON DIOXIDE LEVEL 31 MEQ/L (21-32); CHLORIDE LEVEL 101 MEQ/L (98-107); CREATININE FOR GFR 1.38 MG/DL (0.55-1.30); GLUCOSE, FASTING 217 MG/DL (70-100); POTASSIUM SERUM 3.5 MEQ/L (3.5-5.1); SODIUM LEVEL 141 MEQ/L (136-145)
[2018-05-10] MEDS: ENOXAPARIN 30 MG/0.3 ML SYR (J1650) SC (08:34)
[2018-05-10] MEDS: GABAPENTIN 300 MG CAP PO ×2 (08:34→20:58)
[2018-05-10] MEDS: HumaLOG INSULIN (NovoLOG) PER UNIT SC ×4 (08:34→20:59)
[2018-05-10] MEDS: POTASSIUM CHLORIDE 10 MEQ SR TABLET PO ×2 (08:35→20:58)
[2018-05-10] MEDS: CLOPIDOGREL 75 MG TAB PO (08:35)
[2018-05-10] MEDS: METOPROLOL SUCC *XL* 25MG TAB (TopROL *XL*) PO (08:35)
[2018-05-10] MEDS: MAGNESIUM CHLORIDE 64 MG TABCR (SLO MAG) PO ×2 (08:36→20:59)
[2018-05-10] MEDS: MULTIVITAMINS/MINERALS THERAP 1 TAB PO (08:36)
[2018-05-10 11:16] LABS: BEDSIDE GLUCOSE 319 MG/DL (83-110)
[2018-05-10 17:12] LABS: BEDSIDE GLUCOSE 135 MG/DL (83-110)
[2018-05-10] MEDS: LEVEMIR (INSULIN DETEMIR) 1 UNITS/0.01ML SC (20:58)
[2018-05-10] MEDS: ATORVASTATIN 20 MG TAB PO (20:58)
[2018-05-10] MEDS: SERTRALINE HCL 50 MG TAB PO (20:58)
[2018-05-10 20:59] LABS: BEDSIDE GLUCOSE 155 MG/DL (83-110)
[2018-05-11] MEDS: SLF 3 ML SYR IV (05:34)
[2018-05-11 05:40] LABS: HEMATOCRIT 35.7 % (36.0-47.0); HEMOGLOBIN 11.5 g/dl (12.0-15.5); MEAN CORPUSCULAR HEMOGLOBIN 30.3 pg (27.0-33.0); MEAN CORPUSCULAR HGB CONC 32.2 g/dl (32.0-36.5); MEAN CORPUSCULAR VOLUME 93.9 fl (80.0-96.0); PLATELET COUNT, AUTOMATED 222 10^3/uL (150-450); RED CELL DISTRIBUTION WIDTH 14.6 % (11.5-14.5); WHITE BLOOD COUNT 9.5 10^3/uL (4.0-10.0)
[2018-05-11 06:05] LABS: ANION GAP 7 MEQ/L (8-16); BLOOD UREA NITROGEN 41 MG/DL (7-18); CALCIUM LEVEL 8.6 MG/DL (8.8-10.2); CARBON DIOXIDE LEVEL 32 MEQ/L (21-32); CHLORIDE LEVEL 102 MEQ/L (98-107); CREATININE FOR GFR 1.16 MG/DL (0.55-1.30); GLOMERULAR FILTRATION RATE 47.6 (>32); GLUCOSE, FASTING 150 MG/DL (70-100); MAGNESIUM LEVEL 2.1 MG/DL (1.8-2.4); POTASSIUM SERUM 3.4 MEQ/L (3.5-5.1); SODIUM LEVEL 141 MEQ/L (136-145)
[2018-05-11] MEDS: HumaLOG INSULIN (NovoLOG) PER UNIT SC (08:38)
[2018-05-11] MEDS: FUROSEMIDE 20 MG TAB PO (08:38)
[2018-05-11] MEDS: GABAPENTIN 300 MG CAP PO (08:39)
[2018-05-11] MEDS: CLOPIDOGREL 75 MG TAB PO (08:39)
[2018-05-11] MEDS: MULTIVITAMINS/MINERALS THERAP 1 TAB PO (08:39)
[2018-05-11] MEDS: METOPROLOL SUCC *XL* 25MG TAB (TopROL *XL*) PO (08:39)
[2018-05-11] MEDS: POTASSIUM CHLORIDE 10 MEQ SR TABLET PO (08:40)
[2018-05-11] MEDS: MAGNESIUM CHLORIDE 64 MG TABCR (SLO MAG) PO (08:41)
[2018-05-11] MEDS: ENOXAPARIN 30 MG/0.3 ML SYR (J1650) SC (08:42)
== END 2018-05-11 12:38 | disposition home health service (06) | DRG 291 ==
LOC: M ED 02:55 → M ED INP 06:40 → M PCU 17:10
DX: I11.0 Hypertensive heart disease with heart failure (principal); I50.31 Acute diastolic (congestive) heart failure; E11.9 Type 2 diabetes mellitus without complications; E78.5 Hyperlipidemia, unspecified; E03.9 Hypothyroidism, unspecified; F41.9 Anxiety disorder, unspecified; I25.2 Old myocardial infarction; E83.42 Hypomagnesemia; E66.9 Obesity, unspecified; Z96.653 Presence of artificial knee joint, bilateral; Z85.3 Personal history of malignant neoplasm of breast; Z95.0 Presence of cardiac pacemaker; Z79.4 Long term (current) use of insulin; Z79.899 Other long term (current) drug therapy; Z88.2 Allergy status to sulfonamides; Z88.5 Allergy status to narcotic agent; Z88.8 Allergy status to other drugs, medicaments and biological substances; Z98.49 Cataract extraction status, unspecified eye; Z68.36 Body mass index [BMI] 36.0-36.9, adult

== ENCOUNTER 2019-12-07 04:01 | Emergency (ER) | payer MEDICARE, OTHER ==
[~2019-12-07 04:01] MED LIST changes: +AMLO10TA5 PO; -ASPI1TAB PO; +ASPI81TA26 PO; -ATOR40TA PO; +ATOR40TA75 PO; -AVAP75TA PO; +AVAP75TA7 PO; +BENI40TA28 PO; -BENI40TA5 PO; +CHLO25TA PO; +DOK100TA PO; +FURO20TA2 PO; -GABA-282 PO; +GABA-843 PO; +GLIP5TAB8 PO; -IRBE150T12 PO; +IRBE150T7 PO; +K-TA1TAB PO; +KLOR10TA76 PO; +LASI20TA3 PO; -LORA-376 PO; +LORA0.5T5 PO; -METF1000 PO; +METF10004 PO; -METF500T PO; +METF500T13 PO; -METO100T PO; +METO100T5 PO; +METO1TAB32 PO; -POTA10CA PO; +TOPR25TA PO; +ZOLO50TA PO; +[UNRECOGNIZED DRUG - OTHER] PO
[2019-12-07 04:36] LABS: VENOUS BASE EXCESS 1.6 (-2.0-2.0); VENOUS HCO3 26.9 MEQ/L (23.0-27.0); VENOUS O2 SATURATION 82.1 % (60.0-80.0); VENOUS PARTIAL PRESSURE CO2 45.1 mmHg (38.0-50.0); VENOUS PARTIAL PRESSURE O2 50.1 mmHg (30.0-50.0); VENOUS PH 7.394 UNITS (7.330-7.430); VENOUS STANDARD HCO3 25.6 MEQ/L; VENOUS TOTAL CO2 28.3 MEQ/L (24.0-28.0)
[2019-12-07 04:40] LABS: BASO % 0.3 % (0.0-1.0); EOS # 0.1 10^3/uL (0.0-0.5); EOS % 0.8 % (0.0-3.0); HEMATOCRIT 34.6 % (36.0-47.0); HEMOGLOBIN 11.3 g/dl (12.0-15.5); MEAN CORPUSCULAR HGB CONC 32.7 g/dl (32.0-36.5); MEAN CORPUSCULAR VOLUME 91.8 fl (80.0-96.0); MONO # 0.3 10^3/uL (0.0-0.8); MONO % 2.6 % (0.0-5.0); NEUTROPHILS # 10.7 10^3/uL (1.5-8.5); NEUTROPHILS % 87.7 % (36.0-66.0); PLATELET COUNT, AUTOMATED 205 10^3/uL (150-450); RED BLOOD COUNT 3.77 10^6/uL (4.00-5.40); WHITE BLOOD COUNT 12.2 10^3/uL (4.0-10.0)
[2019-12-07] MEDS ORDERED: MORPHINE 2 MG/ML 1ML VIAL (J2270) IV PRN (04:45)
[2019-12-07] MEDS ORDERED: FUROSEMIDE 20MG/2ML VIAL (J1940) IV ONE (05:00)
[2019-12-07 05:16] LABS: ALBUMIN 3.5 GM/DL (3.2-5.2); BILIRUBIN,DIRECT 0.2 MG/DL (0.0-0.2); BILIRUBIN,TOTAL 0.7 MG/DL (0.2-1.0); CK-MB VALUE MASS 2.4 NG/ML (<3.6); MB/CK RELATIVE INDEX 2.38 (< OR =4); THYROID STIMULATING HORMONE 1.7 uIU/ML (0.358-3.740); THYROXINE (T4) 6.9 UG/DL (4.5-12.0); TOTAL PROTEIN 6.9 GM/DL (6.4-8.2); TROPONIN I 0.35 NG/ML (< 0.10)
[2019-12-07] MEDS ORDERED: METOPROLOL SUCC *XL* 25MG TAB (TopROL *XL*) PO ONE (06:45)
[2019-12-07 06:50] VITALS: BP 189/98
[2019-12-07 06:53] VITALS: BP 155/88
[2019-12-07 07:06] LABS: APPEARANCE, URINE CLEAR (CLEAR); BACTERIA, URINE AUTO NEGATIVE (NEGATIVE); BILIRUBIN, URINE AUTO NEGATIVE (NEGATIVE); BLOOD, URINE BLOOD NEGATIVE (NEGATIVE); COLOR, URINE COLORLESS (YELLOW); GLUCOSE, URINE (UA) AUTO 3+ mg/dL (NEGATIVE); KETONE, URINE AUTO NEGATIVE (NEGATIVE); LEUKOCYTE ESTERASE, URINE AUTO NEGATIVE (NEGATIVE); MUCUS, URINE SMALL (NEGATIVE); NITRITE, URINE AUTO NEGATIVE (NEGATIVE); PROTEIN, URINE AUTO NEGATIVE (NEGATIVE); RBC, URINE AUTO 1 /HPF (0-3); SPECIFIC GRAVITY URINE AUTO 1.009 (1.002-1.035); SQUAMOUS EPITHELIAL CELL UR AU 0 /HPF (0-6); UROBILINOGEN, URINE AUTO 0.2 mg/dL (0.0-2.0); WBC, URINE AUTO 4 /HPF (0-3)
--- NOTE | 2019-12-07 07:36 | ECGEPIP ---
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
--- NOTE | 2019-12-08 09:36 | REP ---
PORTABLE CHEST X-RAY: Single view. HISTORY: Dyspnea and cough. Preliminary report is provided at the time of the exam by Dr. Dowell. COMPARISON CHEST X-RAY: May 09, 2018. FINDINGS: Monitoring electrodes overlie the chest. A bipolar pacemaker is seen in place. Mitral annular calcification is observed. Mild cardiomegaly is observed. Interstitial markings are diffusely prominent unchanged from the May 09, 2018 study consistent with fibrosis. There is no evidence of pleural effusion or focal infiltrate. IMPRESSION: Chronic interstitial fibrosis pattern. Pacemaker. Otherwise no acute disease. Electronically Signed by Brian Morgan MD 12/08/2019 11:01 A
== END 2019-12-07 07:50 | disposition home or self-care (01) ==
LOC: M ED 04:01
DX: I50.9 Heart failure, unspecified (principal); I11.0 Hypertensive heart disease with heart failure; I25.2 Old myocardial infarction; I25.10 Atherosclerotic heart disease of native coronary artery without angina pectoris; E78.5 Hyperlipidemia, unspecified; E03.9 Hypothyroidism, unspecified; E11.9 Type 2 diabetes mellitus without complications; Z95.0 Presence of cardiac pacemaker; Z88.2 Allergy status to sulfonamides; Z88.5 Allergy status to narcotic agent; Z88.8 Allergy status to other drugs, medicaments and biological substances; Z79.899 Other long term (current) drug therapy; Z79.4 Long term (current) use of insulin; Z79.02 Long term (current) use of antithrombotics/antiplatelets
CPT/HCPCS: 71045; 80047; 80076; 81001; 82550; 82553; 82803; 83605; 83880; 84436; 84443; 84484; 85025; 87040; 87077; 93005; 93041; 96374; 99285; J1940

== ENCOUNTER → 2020-07-26 | Outpatient (REF) | payer MEDICARE ==
[~2020-07-26] MED LIST changes: -AMLO10TA5 PO; +AMLO1TAB25 PO; -DOK100TA PO; +DOK100TA2 PO; +GABA-282 PO; -GABA-843 PO
[2020-07-26 18:20] LABS: FOLATE 5.5 NG/ML
== END ==
LOC: M LAB REF 16:33
PROVIDERS: ATTEND Internal Medicine
DX: R41.81 Age-related cognitive decline (principal)

== ENCOUNTER → 2021-01-09 | Outpatient (CLI) | payer MEDICARE ==
--- NOTE | 2021-01-09 11:30 | REP ---
INDICATION: F/U PNEUMONIA; LOWER LUNG OPACITIES FROM 12/10 COMPARISON: 12/07/2019 TECHNIQUE: PA and lateral. FINDINGS: The mediastinum and cardiac silhouette are stable with cardiomegaly and dual pacemaker again noted. The lung rivera demonstrate stable chronic interstitial changes without acute consolidation, effusion, or pneumothorax. Previously suggested left basilar atelectasis resolved. The skeletal structures are intact and demonstrate age-related osteopenia and degenerative changes. IMPRESSION: No acute cardiopulmonary process. <Electronically signed by Remington Dowell > 01/09/21 1120
== END ==
LOC: M CLY 10:53
PROVIDERS: ATTEND Nurse Practitioner Family
DX: I51.7 Cardiomegaly (principal); J98.4 Other disorders of lung; M85.88 Other specified disorders of bone density and structure, other site; Z95.0 Presence of cardiac pacemaker

== ENCOUNTER 2021-03-11 02:35 | Inpatient (IN) | payer MEDICARE ==
[~2021-03-11] VITALS: Ht 162.6 cm; Wt 90.5 kg
[~2021-03-11 02:35] MED LIST changes: -KLOR10TA76 PO; +POTA-136 PO
[2021-03-11 03:28] LABS: BASO % 0.4 % (0.0-1.0); EOS # 0.1 10^3/uL (0.0-0.5); EOS % 0.8 % (0.0-3.0); HEMATOCRIT 37.1 % (36.0-47.0); HEMOGLOBIN 11.9 g/dl (12.0-15.5); LYMPH # 0.8 10^3/uL (1.5-5.0); LYMPH % 6.9 % (24.0-44.0); MEAN CORPUSCULAR HGB CONC 32.1 g/dl (32.0-36.5); MEAN CORPUSCULAR VOLUME 93.5 fl (80.0-96.0); MONO # 0.3 10^3/uL (0.0-0.8); MONO % 2.5 % (2.0-8.0); NEUTROPHILS # 10.1 10^3/uL (1.5-8.5); PLATELET COUNT, AUTOMATED 200 10^3/uL (150-450); RED BLOOD COUNT 3.97 10^6/uL (4.00-5.40); WHITE BLOOD COUNT 11.4 10^3/uL (4.0-10.0)
[2021-03-11 04:17] LABS: ALBUMIN 3.3 GM/DL (3.2-5.2); BILIRUBIN,DIRECT 0.2 MG/DL (0.0-0.2); BILIRUBIN,TOTAL 0.6 MG/DL (0.2-1.0); CALCIUM LEVEL 8.5 MG/DL (8.8-10.2); CK-MB VALUE MASS 2.7 NG/ML (<3.6); CREATININE FOR GFR 1.26 MG/DL (0.55-1.30); MB/CK RELATIVE INDEX 2.87 (< OR =4); POTASSIUM SERUM 4.3 MEQ/L (3.5-5.1); THYROID STIMULATING HORMONE 2.81 uIU/ML (0.358-3.740); TOTAL PROTEIN 6.7 GM/DL (6.4-8.2); TROPONIN I 0.28 NG/ML (< 0.10)
--- NOTE | 2021-03-11 04:22 | REPVR ---
PROCEDURE INFORMATION: Exam: XR Chest Exam date and time: 03/11/2021 3:20 AM Age: 85 years old Clinical indication: Other: Dyspnea/cough TECHNIQUE: Imaging protocol: XR of the chest. Views: 1 view. COMPARISON: CR CHEST 2 VIEW 01/09/2021 11:08 AM FINDINGS: Tubes, catheters and devices: There is a left sided pacemaker. Lungs: There is increased prominence of the interstitium in both lung bases, which represents a change from the prior exam. The central pulmonary vessels do not appear significantly enlarged. Pleural spaces: No pleural effusions or pneumothorax identified. Heart/Mediastinum: Pronounced mitral annulus calcifications are again noted. The heart is borderline in size, unchanged. Bones/joints: Degenerative endplate changes are seen at multiple levels in the visualized spine. IMPRESSION: Increased prominence of the interstitium in the lung bases, without enlargement of the central pulmonary vessels. This may represent interstitial infiltrates from an infectious/inflammatory process or from mild interstitial pulmonary edema. Electronically signed by: Melissa Gray On 03/11/2021 04:21:38 AM
[2021-03-11 06:38] LABS: CK-MB VALUE MASS 3.2 NG/ML (<3.6); MB/CK RELATIVE INDEX 3.23 (< OR =4); TROPONIN I 0.3 NG/ML (< 0.10)
[2021-03-11] MEDS ORDERED: ISOVUE-370 76% 100ML VIAL As Ordered ONE (07:06)
--- NOTE | 2021-03-11 07:38 | REPVR ---
PROCEDURE INFORMATION: Exam: CTA Chest With Contrast Exam date and time: 03/11/2021 7:13 AM Age: 85 years old Clinical indication: Shortness of breath and wheezing; Additional info: SOB TECHNIQUE: Imaging protocol: Computed tomographic angiography of the chest with contrast. 3D rendering (Not supervised by radiologist): MIP and/or 3D reconstructed images were created by the technologist. Radiation optimization: All CT scans at this facility use at least one of these dose optimization techniques: automated exposure control; mA and/or kV adjustment per patient size (includes targeted exams where dose is matched to clinical indication); or iterative reconstruction. Contrast material: ISOVUE 370; Contrast volume: 75 ml; Contrast route: INTRAVENOUS (IV); COMPARISON: CR PORTABLE CHEST X-RAY 03/11/2021 3:09 AM FINDINGS: Limitations: There is motion artifact. Tubes, catheters and devices: There is a left sided pacemaker. Pulmonary arteries: The pulmonary arteries are not enlarged. No filling defects are seen to indicate an acute pulmonary embolism. Assessment of the smaller branches is limited in some locations due to motion artifact. Aorta: The ascending aorta is borderline in size at 3.8 cm in diameter.The contrast bolus was not timed for optimal assessment of the thoracic aorta, but there is no sign of thoracic aortic dissection.The aorta demonstrates moderate atherosclerotic calcification. Lungs: Motion artifact limits the assessment of the fine detail of the lungs. There is small bibasilar atelectasis. There is mild geographic ground-glass attenuation of the lungs. Pleural spaces: There are small, bilateral pleural effusions. Heart: The heart is enlarged. Pronounced mitral annulus calcifications are noted. Aortic valve calcifications are present. There is moderate atherosclerotic calcification of the coronary arteries. Lymph nodes: There are multiple mildly enlarged, nonspecific mediastinal nodes. Some of the mediastinal lymph nodes are partially calcified. Bones/joints: Large flowing endplate spurs are seen at multiple levels in the visualized spine, consistent with benign diffuse idiopathic skeletal hyperostosis (DISH). Soft tissues: Unremarkable. IMPRESSION: 1. No evidence of acute pulmonary embolism. Assessment of some of the smaller branches is limited due to motion artifact, especially in the lung bases. 2. Mild, geographic ground-glass of attenuation of the lungs and small pleural effusions, which are nonspecific findings but may be due to mild interstitial pulmonary edema. Assessment of the fine detail of the lungs is limited. 3. Small amount of bilateral lung base atelectasis. Electronically signed by: Melissa Gray On 03/11/2021 07:38:12 AM
[2021-03-11] MEDS ORDERED: FUROSEMIDE 40MG/4ML VIAL (J1940) IV ONE (07:55)
[2021-03-11] MEDS ORDERED: NITROGLYCERIN 2% OINT 1 GM *U/D* PKT TOP ONE (07:55)
[2021-03-11 08:10] LABS: MAGNESIUM LEVEL 1.9 MG/DL (1.8-2.4)
[2021-03-11] MEDS ORDERED: FURO40TA2 PO (08:25)
[2021-03-11] MEDS ORDERED: METO1TAB32 PO (08:25)
[2021-03-11] MEDS ORDERED: D31000TA2 PO (08:25)
[2021-03-11] MEDS ORDERED: POTA20TA6 PO (08:25)
[2021-03-11 09:27] LABS: RSV AMPLIFICATION NEGATIVE (NEGATIVE)
[2021-03-11] MEDS ORDERED: HOME MED LIST COMPLETE! XX SCH (10:00)
[2021-03-11] MEDS ORDERED: GLUCOSE 4GM CHEW TABLET PO PRN (11:50)
[2021-03-11] MEDS ORDERED: GLUCAGON INJ 1MG VIAL SC PRN (11:50)
[2021-03-11] MEDS ORDERED: DEXTROSE 50% 50 ML SYRINGE IV PRN (11:50)
--- NOTE | 2021-03-11 12:12 | HPEPDOC ---
General Date of Admission 03/11/21 Date of Service: Mar 11, 2021 Chief Complaint The patient is a 85-year-old female admitted with a reason for visit of SOB. 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 Patient reported that all day yesterday she was fine and then after dinner she started feeling a little short of breath which got worse. She could not lay down. Could not catch her breath and felt she was wheezing. At about 2 AM woke up his her son as she was getting distressed and EMS was called and she came to the emergency room. She reported she may have been wheezing at that time. Denied any cough or phlegm denied any leg swelling. She reports she has been taking all her medications. On presentation to the ED she was found to be hypertensive with a blood pressure of 190/90. Chest x-ray showed possible interstitial edema. She then had a CT angio of the chest done which was negative for pulmonary embolism did show bilateral basal atelectasis and also interstitial edema. She was admitted for hypertensive urgency and diastolic CHF exacerbation Home Medications Scheduled Atorvastatin Calcium (Atorvastatin Calcium) 40 Mg Tab, 40 MG PO QPM, (Reported) 1700 Cholecalciferol (Vitamin D3) (Vitamin D3) 1,000 Unit Tablet, 2,000 UNITS PO DAILY, (Reported) Clopidogrel Bisulfate (Clopidogrel) 75 Mg Tab, 75 MG PO DAILY, (Reported) Docusate Sodium (Dok) 100 Mg Tab, 100 MG PO DAILY, (Reported) Furosemide (Furosemide) 40 Mg Tablet, 40 MG PO DAILY Insulin Glargine,Hum.rec.anlog (Lantus Solostar) 100 Unit/Ml Inj, 28 UNIT SC QPM, (Reported) Metoprolol Succinate (Metoprolol Succinate) 25 Mg Tab.er.24h, 25 MG PO DAILY, (Reported) Multivitamins (Thera M Plus Tablet) 1 Tab Tab, 1 TAB PO DAILY, (Reported) Potassium Chloride (Potassium Chloride) 20 Meq Tab.er.prt, 20 MEQ PO DAILY, (Reported) Sertraline Hcl (Zoloft) 50 Mg Tab, 50 MG PO QHS, (Reported) Allergies Coded Allergies: Sulfa (Sulfonamide Antibiotics) (Verified Allergy, Intermediate, RASH HIVES, 12/07/19) codeine (Verified Allergy, Intermediate, RASH HIVES, 12/07/19) tamoxifen (Verified Adverse Reaction, Severe, SEVERE NAUSEA, 12/07/19) Past Medical History Medical History Third-degree heart block, right bundle branch block, left anterior fascicular block s/p Pacemaker 2014 Diastolic CHF Diabetes. Hypertension with hypertensive heart disease Hyperlipidemia. Hypothyroidism. Anxiety disorder. 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 Cataract surgery. 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 Family History Father had coronary artery disease (CAD) and at age 50. Mother had hypercholesterolemia, systemic hypertension, and diabetes. One of her son's has coronary artery disease with heart attack at age 46 and had hypercholesterolemia and systemic hypertension. Social History * Smoker: Denies Alcohol: Denies Drugs: denies A-FIB/CHADSVASC A-FIB History Current/History of A-Fib/PAF?: No Review of Systems Constitutional: Denies: Chills, Fever, Night Sweats Eyes: Denies: Pain, Vision change ENT: Denies: Head Aches, Ear Pain, Dysphagia Skin: Denies: Rash, Lesions, Breakdown Pulmonary: Reports: Dyspnea Cardiovascular: Reports: Orthopnea; Denies: Chest Pain, Palpitations, Paroxysmal Noc. Dyspnea, Lt Headedness Gastrointestinal: Denies: Nausea, Vomiting, Abdominal Pain, Diarrhea Genitourinary: Denies: Dysuria, Frequency Hematologic: Denies: Bruising, Bleeding Excessively Musculoskeletal: Reports: Back Pain, Joint Pain; Denies: Neck Pain, Muscle Pain, Spasms Neurological: Denies: Weakness, Numbness, Change in speech, Confusion Physical Examination General Exam: Positive: Alert, Cooperative, No Acute Distress Eye Exam: Positive: PERRLA, Conjunctiva & lids normal, EOMI; Negative: Sclera icteric ENT Exam: Positive: Atraumatic, Mucous membr. moist/pink, Pharynx Normal Neck Exam: Positive: Supple, JVD; Negative: thyromegaly Chest Exam: Positive: Normal air movement, Diminished (Bilateral diffuse basal crackles); Negative: Rales, Rhonchi, Wheezing Heart Exam: Positive: Rate Normal, Regular Rhythm, Normal S1, Normal S2, Murmurs (Systolic murmurs); Negative: Rubs Telemetry: Positive: Other Telemetry: (Paced rhythm) Abdomen Exam: Positive: Normal bowel sounds, Soft; Negative: Tenderness Extremity Exam: Negative: Clubbing, Cyanosis, Edema Neuro Exam: Positive: Normal Speech, Strength at 5/5 X4 ext, Normal Tone Psych Exam: Positive: Memory Intact, Oriented x 3 Vital Signs Vital Signs Date Time Temp Pulse Resp B/P (MAP) Pulse Ox O2 Delivery O2 Flow Rate FiO2 03/11/21 07:50 82 22 190/110 (136) 97 Nasal Cannula 2.0 03/11/21 07:10 96.9 Laboratory Data Labs 24H Laboratory Tests 2 03/11/21 03:19: Immature Granulocyte % (Auto) 0.4, Neutrophils (%) (Auto) 89.0H, Lymphocytes (%) (Auto) 6.9L, Monocytes (%) (Auto) 2.5, Eosinophils (%) (Auto) 0.8, Basophils (%) (Auto) 0.4, Neutrophils # (Auto) 10.1H, Lymphocytes # (Auto) 0.8L, Monocytes # (Auto) 0.3, Eosinophils # (Auto) 0.1, Basophils # (Auto) 0.0, Nucleated Red Blood Cells % (auto) 0.0, Anion Gap 5L, Glomerular Filtration Rate 43.0, Calcium Level 8.5L, Total Bilirubin 0.6, Direct Bilirubin 0.2, Aspartate Amino Transf (AST/SGOT) 16, Alanine Aminotransferase (ALT/SGPT) 28, Alkaline Phosphatase 151H, Total Creatine Kinase 94, Creatine Kinase MB 2.7, Creatine Kinase MB Relative Index 2.87, Troponin I 0.28H, XZ-Fyw-O-Type Natriuretic Peptide 2342H, Total Protein 6.7, Albumin 3.3, Albumin/Globulin Ratio 1.0L, Thyroid Stimulating Hormone (TSH) 2.810 03/11/21 06:00: Total Creatine Kinase 99, Creatine Kinase MB 3.2, Creatine Kinase MB Relative Index 3.23, Troponin I 0.30H CBC/BMP Laboratory Tests 03/11/21 03:19 Assessment/Plan 85-year-old female with history of diastolic congestive heart failure, hypertension with hypertensive heart disease, diabetes, degenerative aortic and mitral valvular disease, hypothyroid, pacemaker due to AV block 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 Patient reported that all day yesterday she was fine and then after dinner she started feeling a little short of breath which got worse then about 2 AM woke up his her son and as she could not catch her breath and was getting distressed and EMS was called and she came to the emergency room. She reported she may have been wheezing at that time. Denied any cough or phlegm denied any leg swelling. She reports she has been taking all her medications. On presentation to the ED she was found to be hypertensive with a blood pressure of 190/90. Chest x-ray showed possible interstitial edema. She then had a CT angio of the chest done which was negative for pulmonary embolism did show bilateral basal atelectasis and also interstitial edema. She was admitted for hypertensive urgency and diastolic CHF exacerbation Hypertensive urgency with flash pulmonary edema vs Diastolic CHF exacerbation Unsure if she went into an hypertensive urgency and developed acute heart failure or she developed acute heart failure which led to hypertensive urgency Will get a renal Doppler flow to evaluate for renal artery stenosis We will continue with IV Lasix Monitor intake and output, 1.8 L fluid restriction Aortic and mitral valvular heart disease She does have calcific aortic valve and mild aortic stenosis as well as aortic regurgitation she also does have calcified mitral annular ring as well as mitral regurgitation This also may have caused CHF exacerbation Diabetes Continue Levemir and lispro as per sliding scale Fingerstick before meals and at bedtime Hypertension Continue with metoprolol and Lasix Patient has received a Nitropaste in the ED. we will keep it on for now. We will get a renal Doppler flow We will start on amlodipine and hydralazine with hold parameters Hypothyroid Not on any medication Pacemaker in place due to AV block All paced rhythm at present Plan / VTE VTE Prophylaxis Ordered?: Yes Morelia Patel MD Mar 11, 2021 09:44
[2021-03-11 12:25] VITALS: BP 189/95
[2021-03-11] MEDS ORDERED: SLF 3 ML SYR IV PRN (12:50)
[2021-03-11] MEDS: ENOXAPARIN 40MG/0.4ML SYRINGE (J1650 PER 10MG) SC SCH (13:06)
[2021-03-11] MEDS: HumaLOG INSULIN (NovoLOG) PER UNIT SC SCH ×2 (13:07→17:56)
[2021-03-11] MEDS: LEVEMIR (INSULIN DETEMIR) 1 UNITS/0.01ML SC SCH ×2 (13:07→20:17)
[2021-03-11] MEDS: METOPROLOL SUCC *XL* 25MG TAB (TopROL *XL*) PO SCH (13:08)
[2021-03-11] MEDS: POTASSIUM CHLORIDE 10MEQ SR TABLET PO SCH (13:08)
[2021-03-11] MEDS: CLOPIDOGREL 75 MG TAB PO SCH (13:08)
[2021-03-11] MEDS: **hydrALAZINE HCL** 25 MG TAB PO SCH ×3 (13:09→23:17)
[2021-03-11] MEDS: SLF 3 ML SYR IV SCH ×2 (13:39→20:18)
[2021-03-11 14:00] VITALS: BP 104/59
[2021-03-11 16:00] VITALS: BP 102/59
[2021-03-11] MEDS ORDERED: FUROSEMIDE 40MG/4ML VIAL (J1940) IV SCH (17:00)
[2021-03-11 20:00] VITALS: BP 117/56
--- NOTE | 2021-03-11 20:18 | ECGEPIP ---
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
[2021-03-11] MEDS ORDERED: HumaLOG INSULIN (NovoLOG) PER UNIT SC SCH (21:00)
[2021-03-11] MEDS ORDERED: SERTRALINE HCL 50 MG TAB PO SCH (21:00)
[2021-03-11] MEDS ORDERED: ATORVASTATIN 20 MG TAB PO SCH (21:00)
[2021-03-11] MEDS ORDERED: amLODIPine 5 MG TAB PO SCH (21:00)
[2021-03-12] VITALS: BP 133/67
[2021-03-12 04:00] VITALS: BP 101/58
[2021-03-12 05:32] LABS: BASO # 0.1 10^3/uL (0.0-0.2); BASO % 0.9 % (0.0-1.0); EOS # 0.2 10^3/uL (0.0-0.5); HEMATOCRIT 36.9 % (36.0-47.0); HEMOGLOBIN 11.8 g/dl (12.0-15.5); LYMPH # 1.2 10^3/uL (1.5-5.0); MEAN CORPUSCULAR HEMOGLOBIN 29.4 pg (27.0-33.0); MONO # 0.3 10^3/uL (0.0-0.8); MONO % 5.8 % (2.0-8.0); NEUTROPHILS # 3.9 10^3/uL (1.5-8.5); NEUTROPHILS % 69.1 % (36.0-66.0); PLATELET COUNT, AUTOMATED 190 10^3/uL (150-450); RED BLOOD COUNT 4.01 10^6/uL (4.00-5.40); WHITE BLOOD COUNT 5.7 10^3/uL (4.0-10.0)
[2021-03-12 05:57] LABS: CALCIUM LEVEL 8.8 MG/DL (8.8-10.2); CREATININE FOR GFR 1.51 MG/DL (0.55-1.30); GLOMERULAR FILTRATION RATE 34.9 (>32); MAGNESIUM LEVEL 1.9 MG/DL (1.8-2.4); POTASSIUM SERUM 3.5 MEQ/L (3.5-5.1)
[2021-03-12] MEDS: **hydrALAZINE HCL** 25 MG TAB PO SCH (06:00)
[2021-03-12] MEDS: SLF 3 ML SYR IV SCH (06:35)
[2021-03-12 07:26] VITALS: BP 138/63
[2021-03-12] MEDS: HumaLOG INSULIN (NovoLOG) PER UNIT SC SCH (07:30)
[2021-03-12 08:00] VITALS: BP 138/63
--- NOTE | 2021-03-12 09:20 | REP ---
INDICATION: ? BENITA COMPARISON: None TECHNIQUE: Real time jules scale ultrasound examination using curved array transducer followed by color Doppler evaluation of the renal vasculature. FINDINGS: Bilateral kidneys are normal in reniform shape. Right kidney measures 9.6 x 4.2 x 4.0 cm. Left kidney measures 9.4 x 4.3 x 4.9 cm. No hydronephrosis, nephrolithiasis or cystic mass lesion identified. Bladder is unremarkable. Incidental complex right adnexal mass and complex appearance to the right ovary with septated area incompletely evaluated. Color Doppler evaluation. 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 LEFT KIDNEY Renal arterial velocity: 77.8 centimeters/second Renal-aortic ratio: 1.4 Intrarenal resistive indices: 0.83-0.88 Intrarenal acceleration times: 0.02-0.06 IMPRESSION: 1. Kidneys appear essentially age-appropriate and without hydronephrosis. 2. Doppler interegation without definite sonographic evidence for renal arterial stenosis. 3. Complex right ovary and adnexal mass are suspected and incompletely evaluated. Consider pelvic ultrasound and or contrast-enhanced CT of the abdomen and pelvis for further investigation. <Electronically signed by Remington Dowell > 03/12/21 0916
[2021-03-12] MEDS: POTASSIUM CHLORIDE 10MEQ SR TABLET PO SCH (09:29)
[2021-03-12 09:30] VITALS: BP 138/63
[2021-03-12] MEDS: ENOXAPARIN 40MG/0.4ML SYRINGE (J1650 PER 10MG) SC SCH (09:30)
[2021-03-12] MEDS: CLOPIDOGREL 75 MG TAB PO SCH (09:30)
[2021-03-12] MEDS: METOPROLOL SUCC *XL* 25MG TAB (TopROL *XL*) PO SCH (09:30)
[2021-03-12] MEDS ORDERED: FURO40TA2 PO (10:47)
[2021-03-12] MEDS ORDERED: ISOVUE-370 76% 100ML VIAL As Ordered ONE (11:08)
--- NOTE | 2021-03-12 11:45 | REP ---
INDICATION: right ovarian/ adenexal complex mass. COMPARISON: None TECHNIQUE: Axial contrast-enhanced images from the lung bases to the pubic symphysis using 100 cc Isovue 370 intravenous contrast material. . This CT examination was performed using the following dose reduction techniques: Automated exposure control, adjustment of mA and/or kv according to the patient's size, and the use of iterative reconstruction technique. FINDINGS: Liver, spleen, pancreas, gallbladder, and bilateral adrenal glands are normal. Kidneys demonstrate symmetric age-related cortical thinning without hydronephrosis or perinephric stranding. The enteric system including stomach, small, and large bowel appears normal. No evidence for obstruction or acute inflammatory process. Normal terminal ileum and appendix are identified in the right lower quadrant. Pelvis demonstrates normal bladder and age-appropriate uterus. Left ovary includes 2.6 cm cyst which appears relatively simple by CT evaluation. Right ovary is dominated by a suspected proteinaceous cyst measuring 7.5 cm in length and 5 cm diameter. No specific pelvic fluid or obvious adenopathy appreciated. No ascites. No free air. No intraperitoneal or retroperitoneal adenopathy. Atherosclerotic changes to the aorta and vasculature noted. Musculoskeletal structures demonstrate age-related osteopenia and degenerative changes without acute osseous abnormality. IMPRESSION: 1. 7.5 x 5 cm presumed proteinaceous cyst dominates the right ovary. No associated acute stranding, fluid or adenopathy noted. 2.6 cm simple left ovarian cyst also identified. 2. No further acute abdominopelvic pathology appreciated. <Electronically signed by Remington Dowell > 03/12/21 9883
[2021-03-12] MEDS ORDERED: LEVEMIR (INSULIN DETEMIR) 1 UNITS/0.01ML SC SCH (21:00)
--- NOTE | 2021-04-04 09:18 | DS.PDOC ---
Discharge Summary General Date of Admission Mar 11, 2021 at 07:57 Date of Discharge 03/12/21 Discharge Summary PROCEDURES PERFORMED DURING STAY: [None]. DISCHARGE DIAGNOSES: Diastolic CHF Exacerbation Hypertensive urgency Aortic and Mitral valvular disease Right adenexal/ovarian complex mass SECONDARY DIAGNOSIS: Third-degree heart block, right bundle branch block, left anterior fascicular block s/p Pacemaker 2014 Diastolic CHF Diabetes. Hypertension with hypertensive heart disease Hyperlipidemia. Hypothyroidism. Anxiety disorder. 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 Cataract surgery. 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 COMPLICATIONS/CHIEF COMPLAINT: CHF. 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 Patient reported that all day yesterday she was fine and then after dinner she started feeling a little short of breath which got worse then about 2 AM woke up his her son and as she could not catch her breath and was getting distressed and EMS was called and she came to the emergency room. She reported she may have been wheezing at that time. Denied any cough or phlegm denied any leg swelling. She reports she has been taking all her medications. On presentation to the ED she was found to be hypertensive with a blood pressure of 190/90. Chest x-ray showed possible interstitial edema. She then had a CT angio of the chest done which was negative for pulmonary embolism did show bilateral basal atelectasis and also interstitial edema. She was admitted for hypertensive urgency and diastolic CHF exacerbation Diastolic CHF exacerbation likely due to reduction in lasix dosage recently Renal Doppler flow negative for renal artery stenosis. Lasix 40 mg daily Monitor intake and output, 1.8 L fluid restriction Hypertensive urgency due to CHF exacerbation now resolved continue home metoprolol Aortic and mitral valvular heart disease She does have calcific aortic valve and mild aortic stenosis as well as aortic regurgitation she also does have calcified mitral annular ring as well as mitral regurgitation This also may have caused CHF exacerbation Diabetes home medications Hypothyroid Not on any medication Pacemaker in place due to AV block All paced rhythm at present Incidental finding of right adenexal/ complex mass CT with contrast Follow up with PMD DISCHARGE MEDICATIONS: Please see below. ALLERGIES: Please see below. PHYSICAL EXAMINATION ON DISCHARGE: VITAL SIGNS: Please see below. General Exam: Positive: Alert, Cooperative, No Acute Distress Eye Exam: Positive: PERRLA, Conjunctiva & lids normal, EOMI; Negative: Sclera icteric ENT Exam: Positive: Atraumatic, Mucous membr. moist/pink, Pharynx Normal Neck Exam: Positive: Supple, JVD; Negative: thyromegaly Chest Exam: Positive: Normal air movement, Diminished (Bilateral diffuse basal crackles); Negative: Rales, Rhonchi, Wheezing Heart Exam: Positive: Rate Normal, Regular Rhythm, Normal S1, Normal S2, Murmurs (Systolic murmurs); Negative: Rubs Telemetry: Positive: Other Telemetry: (Paced rhythm) Abdomen Exam: Positive: Normal bowel sounds, Soft; Negative: Tenderness Extremity Exam: Negative: Clubbing, Cyanosis, Edema Neuro Exam: Positive: Normal Speech, Strength at 5/5 X4 ext, Normal Tone Psych Exam: Positive: Memory Intact, Oriented x 3 LABORATORY DATA: Please see below. IMAGING: CTA of chest: IMPRESSION: 1. No evidence of acute pulmonary embolism. Assessment of some of the smaller branches is limited due to motion artifact, especially in the lung bases. 2. Mild, geographic ground-glass of attenuation of the lungs and small pleural effusions, which are nonspecific findings but may be due to mild interstitial pulmonary edema. Assessment of the fine detail of the lungs is limited. 3. Small amount of bilateral lung base atelectasis. Renal US with Doppler 1. Kidneys appear essentially age-appropriate and without hydronephrosis. 2. Doppler interegation without definite sonographic evidence for renal arterial stenosis. 3. Complex right ovary and adnexal mass are suspected and incompletely evaluated.Consider pelvic ultrasound and or contrast-enhanced CT of the abdomen and pelvis for further investigation CT abd and pelvis: IMPRESSION: 1. 7.5 x 5 cm presumed proteinaceous cyst dominates the right ovary. No associated acute stranding, fluid or adenopathy noted. 2.6 cm simple left ovarian cyst also identified. 2. No further acute abdominopelvic pathology appreciated. ACTIVITY: [As tolerated]. DIET: 2 gm sodium, fluid restriction 1.8 liters. DISCHARGE PLAN: Home. DISCHARGE INSTRUCTIONS: PMD in 1 week ITEMS TO FOLLOWUP ON ON OUTPATIENT: DISCHARGE CONDITION: [Stable]. TIME SPENT ON DISCHARGE: 35 minutes. Vital Signs/I&Os Vital Signs Date Time Temp Pulse Resp B/P (MAP) Pulse Ox O2 Delivery O2 Flow Rate FiO2 03/12/21 09:30 71 138/63 03/12/21 08:00 97.0 17 93 Room Air 03/11/21 11:30 2.0 I&O- Last 24 Hours up to 6 AM 03/12/21 06:00 Intake Total 650 ml Output Total 1000 ml Balance -350 ml Laboratory Data Labs 24H Laboratory Tests 2 03/11/21 12:56: Bedside Glucose (Misc Panel) 195H 03/11/21 17:49: Bedside Glucose (Misc Panel) 200H 03/11/21 20:03: Bedside Glucose (Misc Panel) 252H 03/12/21 05:06: Immature Granulocyte % (Auto) 0.2, Neutrophils (%) (Auto) 69.1H, Lymphocytes (%) (Auto) 21.0L, Monocytes (%) (Auto) 5.8, Eosinophils (%) (Auto) 3.0, Basophils (%) (Auto) 0.9, Neutrophils # (Auto) 3.9, Lymphocytes # (Auto) 1.2L, Monocytes # (Auto) 0.3, Eosinophils # (Auto) 0.2, Basophils # (Auto) 0.1, Nucleated Red Blood Cells % (auto) 0.0, Anion Gap 5L, Glomerular Filtration Rate 34.9, Calcium Level 8.8, Magnesium Level 1.9 CBC/BMP Laboratory Tests 03/12/21 05:06 FSBS Laboratory Tests Test 03/11/21 12:56 03/11/21 17:49 03/11/21 20:03 Range/Units Bedside Glucose (Misc Panel) 195 200 252 83-110 MG/DL Discharge Medications Scheduled Atorvastatin Calcium (Atorvastatin Calcium) 40 Mg Tab, 40 MG PO QPM, (Reported) 1700 Cholecalciferol (Vitamin D3) (Vitamin D3) 1,000 Unit Tablet, 2,000 UNITS PO BELEN LY, (Reported) Clopidogrel Bisulfate (Clopidogrel) 75 Mg Tab, 75 MG PO DAILY, (Reported) Docusate Sodium (Dok) 100 Mg Tab, 100 MG PO DAILY, (Reported) Furosemide (Furosemide) 40 Mg Tablet, 40 MG PO DAILY Insulin Glargine,Hum.rec.anlog (Lantus Solostar) 100 Unit/Ml Inj, 28 UNIT SC QP M, (Reported) Metoprolol Succinate (Metoprolol Succinate) 25 Mg Tab.er.24h, 25 MG PO DAILY, (Reported) Multivitamins (Thera M Plus Tablet) 1 Tab Tab, 1 TAB PO DAILY, (Reported) Potassium Chloride (Potassium Chloride) 20 Meq Tab.er.prt, 20 MEQ PO DAILY, (Reported) Sertraline Hcl (Zoloft) 50 Mg Tab, 50 MG PO QHS, (Reported) Allergies Coded Allergies: Sulfa (Sulfonamide Antibiotics) (Verified Allergy, Intermediate, RASH HIVES, 12/07/19) codeine (Verified Allergy, Intermediate, RASH HIVES, 12/07/19) tamoxifen (Verified Adverse Reaction, Severe, SEVERE NAUSEA, 12/07/19) Morelia Patel MD Mar 12, 2021 11:09
== END 2021-03-12 13:14 | disposition home health service (06) | DRG 292 ==
LOC: M ED 02:35 → M ED INP 07:57 → ENRESERV 09:36 → M PCU 12:22
PROVIDERS: ADMIT Internal Medicine Nephrology; ATTEND Internal Medicine Nephrology
DX: I11.0 Hypertensive heart disease with heart failure (principal); I44.2 Atrioventricular block, complete; I45.2 Bifascicular block; I50.33 Acute on chronic diastolic (congestive) heart failure; E11.40 Type 2 diabetes mellitus with diabetic neuropathy, unspecified; I08.0 Rheumatic disorders of both mitral and aortic valves; R27.0 Ataxia, unspecified; E03.9 Hypothyroidism, unspecified; Z66 Do not resuscitate; I16.0 Hypertensive urgency; Z95.0 Presence of cardiac pacemaker; Z79.02 Long term (current) use of antithrombotics/antiplatelets; Z79.4 Long term (current) use of insulin; Z79.899 Other long term (current) drug therapy; Z88.2 Allergy status to sulfonamides; Z88.5 Allergy status to narcotic agent; Z88.8 Allergy status to other drugs, medicaments and biological substances; Z85.3 Personal history of malignant neoplasm of breast; Z86.73 Personal history of transient ischemic attack (TIA), and cerebral infarction without residual deficits; Z98.49 Cataract extraction status, unspecified eye

== ENCOUNTER 2022-05-22 16:24 | Inpatient (IN) | payer MEDICARE ==
[~2022-05-22] VITALS: Ht 165.1 cm; Wt 81.0 kg
[~2022-05-22 16:24] MED LIST changes: -BENI40TA28 PO; +FURO40TA2 PO; +OLME-2 PO; +POTA-151 PO; +VITA100093 PO
[2022-05-22] MEDS ORDERED: LIDOCAINE 2% 5ML JELLY UROJET TOP ONE ×2 (16:55→18:45)
[2022-05-22 17:57] LABS: BASO % 0.3 % (0.0-1.0); EOS % 0.2 % (0.0-3.0); HEMATOCRIT 45.4 % (36.0-47.0); HEMOGLOBIN 14.4 g/dl (12.0-15.5); LYMPH % 11.2 % (24.0-44.0); MEAN CORPUSCULAR HEMOGLOBIN 29.6 pg (27.0-33.0); MEAN CORPUSCULAR HGB CONC 31.7 g/dl (32.0-36.5); MEAN CORPUSCULAR VOLUME 93.4 fl (80.0-96.0); MONO # 0.6 10^3/uL (0.0-0.8); MONO % 6.4 % (2.0-8.0); NEUTROPHILS # 7.3 10^3/uL (1.5-8.5); NEUTROPHILS % 81.6 % (36.0-66.0); PLATELET COUNT, AUTOMATED 183 10^3/uL (150-450); RED BLOOD COUNT 4.86 10^6/uL (4.00-5.40); WHITE BLOOD COUNT 8.9 10^3/uL (4.0-10.0)
[2022-05-22 18:25] LABS: RSV AMPLIFICATION NEGATIVE (NEGATIVE)
[2022-05-22 19:40] LABS: CK-MB VALUE MASS 1.6 NG/ML (<3.6); MB/CK RELATIVE INDEX 0.71 (< OR =4)
[2022-05-22 19:41] LABS: ALBUMIN 3.6 GM/DL (3.2-5.2); BILIRUBIN,DIRECT 0.3 MG/DL (0.0-0.2); BILIRUBIN,TOTAL 0.9 MG/DL (0.2-1.0); CALCIUM LEVEL 9.3 MG/DL (8.8-10.2); CREATININE FOR GFR 1.73 MG/DL (0.55-1.30); FREE T4 0.94 NG/DL (0.76-1.46); GLOMERULAR FILTRATION RATE 29.7 (>32); POTASSIUM SERUM 4.2 MEQ/L (3.5-5.1); THYROID STIMULATING HORMONE 2.06 uIU/ML (0.358-3.740); TOTAL PROTEIN 7.4 GM/DL (6.4-8.2)
[2022-05-22 20:50] LABS: CK-MB VALUE MASS 1.4 NG/ML (<3.6); MB/CK RELATIVE INDEX 0.6 (< OR =4)
[2022-05-22] MEDS ORDERED: FUROSEMIDE 100MG/10ML VIAL (J1940) IV ONE (21:15)
[2022-05-22] MEDS ORDERED: DEXTROSE 50% 50 ML SYRINGE IV PRN (22:00)
[2022-05-22] MEDS ORDERED: GLUCAGON INJ 1MG VIAL SC PRN (22:00)
[2022-05-22] MEDS ORDERED: GLUCOSE 4GM CHEW TABLET PO PRN (22:00)
[2022-05-22] MEDS ORDERED: ACETAMINOPHEN TAB 650MG DOSE (2X325MG) PO PRN (22:00)
[2022-05-22] MEDS: INSULIN LISPRO (NovoLOG) PER UNIT SC SCH (22:25)
[2022-05-23] VITALS (10 sets, daily range): BP systolic 104–128; BP diastolic 55–70; O2SAT 92–95
[2022-05-23] MEDS ORDERED: MIRT1TAB PO (00:08)
[2022-05-23] MEDS ORDERED: FURO40TA2 PO (00:08)
[2022-05-23] MEDS ORDERED: HOME MED LIST COMPLETE! XX SCH (00:10)
[2022-05-23 02:51] LABS: CK-MB VALUE MASS 1.2 NG/ML (<3.6); MB/CK RELATIVE INDEX 0.7 (< OR =4)
[2022-05-23 05:59] LABS: HEMATOCRIT 40.4 % (36.0-47.0); HEMOGLOBIN 12.8 g/dl (12.0-15.5); MEAN CORPUSCULAR HEMOGLOBIN 29.9 pg (27.0-33.0); MEAN CORPUSCULAR HGB CONC 31.7 g/dl (32.0-36.5); MEAN CORPUSCULAR VOLUME 94.4 fl (80.0-96.0); PLATELET COUNT, AUTOMATED 168 10^3/uL (150-450); RED BLOOD COUNT 4.28 10^6/uL (4.00-5.40); WHITE BLOOD COUNT 7.6 10^3/uL (4.0-10.0)
[2022-05-23 06:16] LABS: INR 1.06
[2022-05-23 06:17] LABS: PARTIAL THROMBOPLASTIN TIME 31.8 SECONDS (24.8-34.2)
[2022-05-23 06:42] LABS: CREATININE FOR GFR 1.7 MG/DL (0.55-1.30); GLOMERULAR FILTRATION RATE 30.3 (>32); MAGNESIUM LEVEL 1.9 MG/DL (1.8-2.4); POTASSIUM SERUM 3.4 MEQ/L (3.5-5.1)
[2022-05-23] MEDS: HEPARIN SOD (PORCINE) 5000UNITS/ML 1ML VIAL/SYRINGE SC SCH ×3 (06:44→22:10)
[2022-05-23] MEDS: DOCUSATE SODIUM 100MG CAPSULE PO SCH ×2 (09:23→20:42)
[2022-05-23] MEDS: FUROSEMIDE 40MG/4ML VIAL (J1940) IV SCH ×2 (09:24→18:12)
[2022-05-23] MEDS: LEVEMIR (INSULIN DETEMIR) 1 UNITS/0.01ML SC SCH (09:24)
[2022-05-23] MEDS: INSULIN LISPRO (NovoLOG) PER UNIT SC SCH ×4 (09:25→20:39)
[2022-05-23] MEDS ORDERED: POTASSIUM CHLORIDE 10MEQ SR TABLET PO SCH (12:00)
[2022-05-23] MEDS: CLOPIDOGREL 75 MG TAB PO SCH (18:11)
[2022-05-23] MEDS: METOPROLOL SUCC *XL* 25MG TAB (TopROL *XL*) PO SCH (18:12)
[2022-05-23] MEDS: ATORVASTATIN 20 MG TAB PO SCH (18:12)
[2022-05-23] MEDS: SERTRALINE HCL 50 MG TAB PO SCH (18:12)
[2022-05-23] MEDS: MIRTAZAPINE 7.5MG PER 1/2 TABLET PO SCH (20:38)
[2022-05-24] VITALS (24 sets, daily range): BP systolic 109–143; BP diastolic 56–79; O2SAT 86–96
[2022-05-24 05:41] LABS: HEMATOCRIT 39.5 % (36.0-47.0); HEMOGLOBIN 12.8 g/dl (12.0-15.5); MEAN CORPUSCULAR HEMOGLOBIN 30.4 pg (27.0-33.0); MEAN CORPUSCULAR HGB CONC 32.4 g/dl (32.0-36.5); MEAN CORPUSCULAR VOLUME 93.8 fl (80.0-96.0); PLATELET COUNT, AUTOMATED 172 10^3/uL (150-450); RED BLOOD COUNT 4.21 10^6/uL (4.00-5.40); WHITE BLOOD COUNT 5.4 10^3/uL (4.0-10.0)
[2022-05-24 06:15] LABS: CALCIUM LEVEL 8.9 MG/DL (8.8-10.2); CREATININE FOR GFR 1.8 MG/DL (0.55-1.30); GLOMERULAR FILTRATION RATE 28.4 (>32); MAGNESIUM LEVEL 2.1 MG/DL (1.8-2.4); POTASSIUM SERUM 3.4 MEQ/L (3.5-5.1)
[2022-05-24] MEDS: HEPARIN SOD (PORCINE) 5000UNITS/ML 1ML VIAL/SYRINGE SC SCH ×3 (06:32→21:00)
[2022-05-24] MEDS ORDERED: POTASSIUM CHLORIDE 10MEQ SR TABLET PO ONE (07:35)
[2022-05-24] MEDS: INSULIN LISPRO (NovoLOG) PER UNIT SC SCH ×4 (09:05→21:00)
[2022-05-24] MEDS: DOCUSATE SODIUM 100MG CAPSULE PO SCH ×2 (09:08→21:00)
[2022-05-24] MEDS: LEVEMIR (INSULIN DETEMIR) 1 UNITS/0.01ML SC SCH (09:09)
[2022-05-24] MEDS: ATORVASTATIN 20 MG TAB PO SCH (17:03)
[2022-05-24] MEDS: CLOPIDOGREL 75 MG TAB PO SCH (17:04)
[2022-05-24] MEDS: SERTRALINE HCL 50 MG TAB PO SCH (17:04)
[2022-05-24] MEDS: METOPROLOL SUCC *XL* 25MG TAB (TopROL *XL*) PO SCH (17:04)
[2022-05-24] MEDS: MIRTAZAPINE 7.5MG PER 1/2 TABLET PO SCH (21:00)
[2022-05-25] VITALS (24 sets, daily range): BP systolic 120–148; BP diastolic 61–73; O2SAT 89–95
[2022-05-25] MEDS: HEPARIN SOD (PORCINE) 5000UNITS/ML 1ML VIAL/SYRINGE SC SCH ×3 (05:56→20:49)
[2022-05-25] MEDS: INSULIN LISPRO (NovoLOG) PER UNIT SC SCH ×4 (08:35→20:49)
[2022-05-25] MEDS: DOCUSATE SODIUM 100MG CAPSULE PO SCH ×2 (08:35→20:48)
[2022-05-25] MEDS: LEVEMIR (INSULIN DETEMIR) 1 UNITS/0.01ML SC SCH (08:35)
[2022-05-25 08:42] LABS: HEMATOCRIT 36.8 % (36.0-47.0); MEAN CORPUSCULAR HEMOGLOBIN 30.3 pg (27.0-33.0); MEAN CORPUSCULAR HGB CONC 32.6 g/dl (32.0-36.5); MEAN CORPUSCULAR VOLUME 92.9 fl (80.0-96.0); PLATELET COUNT, AUTOMATED 196 10^3/uL (150-450); RED BLOOD COUNT 3.96 10^6/uL (4.00-5.40); WHITE BLOOD COUNT 7.6 10^3/uL (4.0-10.0)
[2022-05-25 09:18] LABS: CALCIUM LEVEL 8.9 MG/DL (8.8-10.2); CREATININE FOR GFR 1.48 MG/DL (0.55-1.30); GLOMERULAR FILTRATION RATE 35.6 (>32); MAGNESIUM LEVEL 1.9 MG/DL (1.8-2.4); POTASSIUM SERUM 3.8 MEQ/L (3.5-5.1)
[2022-05-25] MEDS: METOPROLOL SUCC *XL* 25MG TAB (TopROL *XL*) PO SCH (16:56)
[2022-05-25] MEDS: SERTRALINE HCL 50 MG TAB PO SCH (16:56)
[2022-05-25] MEDS: ATORVASTATIN 20 MG TAB PO SCH (16:57)
[2022-05-25] MEDS: CLOPIDOGREL 75 MG TAB PO SCH (16:57)
[2022-05-25] MEDS: MIRTAZAPINE 7.5MG PER 1/2 TABLET PO SCH (20:48)
[2022-05-26] VITALS (16 sets, daily range): BP systolic 96–138; BP diastolic 52–68; O2SAT 90–95
[2022-05-26] MEDS: HEPARIN SOD (PORCINE) 5000UNITS/ML 1ML VIAL/SYRINGE SC SCH ×3 (06:02→21:01)
[2022-05-26 07:22] LABS: HEMATOCRIT 36.4 % (36.0-47.0); HEMOGLOBIN 11.7 g/dl (12.0-15.5); MEAN CORPUSCULAR HEMOGLOBIN 29.8 pg (27.0-33.0); MEAN CORPUSCULAR HGB CONC 32.1 g/dl (32.0-36.5); MEAN CORPUSCULAR VOLUME 92.6 fl (80.0-96.0); PLATELET COUNT, AUTOMATED 188 10^3/uL (150-450); RED BLOOD COUNT 3.93 10^6/uL (4.00-5.40); WHITE BLOOD COUNT 8.3 10^3/uL (4.0-10.0)
[2022-05-26 07:47] LABS: CALCIUM LEVEL 8.8 MG/DL (8.8-10.2); CREATININE FOR GFR 1.61 MG/DL (0.55-1.30); GLOMERULAR FILTRATION RATE 32.3 (>32); MAGNESIUM LEVEL 1.9 MG/DL (1.8-2.4); POTASSIUM SERUM 3.7 MEQ/L (3.5-5.1)
[2022-05-26] MEDS: DOCUSATE SODIUM 100MG CAPSULE PO SCH ×2 (08:59→21:01)
[2022-05-26] MEDS: LEVEMIR (INSULIN DETEMIR) 1 UNITS/0.01ML SC SCH (09:01)
[2022-05-26] MEDS: INSULIN LISPRO (NovoLOG) PER UNIT SC SCH ×4 (09:02→20:20)
[2022-05-26 13:18] LABS: ABG BASE EXCESS -1.6 (-2.0-2.0); ABG HCO3 23.1 MEQ/L (22.0-26.0); ABG O2 SATURATION 95.8 % (95.0-99.0); ABG PARTIAL PRESSURE O2 77.9 mmHg (75.0-100.0); ABG STANDARD HCO3 23.1 MEQ/L (22.0-26.0); ABG TOTAL CO2 24.3 MEQ/L (23.0-31.0); ABG pH (ARTERIAL) 7.391 UNITS (7.350-7.450)
[2022-05-26] MEDS: cefTRIAXone SOD 2 GM in D5W MINI-BAG PLUS 50 ML IV SCH (14:16)
[2022-05-26] MEDS: CLOPIDOGREL 75 MG TAB PO SCH (16:51)
[2022-05-26] MEDS: DOXYCYCLINE HYCLATE 100 MG in D5W MINI-BAG PLUS 100 ML IV SCH (16:51)
[2022-05-26] MEDS: ATORVASTATIN 20 MG TAB PO SCH (16:51)
[2022-05-26] MEDS: METOPROLOL SUCC *XL* 25MG TAB (TopROL *XL*) PO SCH (16:53)
[2022-05-26] MEDS: SERTRALINE HCL 50 MG TAB PO SCH (16:55)
[2022-05-26] MEDS: LACTOBACILLUS ACIDOPHILUS CAP (BACID) PO SCH (16:58)
[2022-05-27] VITALS (7 sets, daily range): BP systolic 105–135; BP diastolic 56–73
[2022-05-27] MEDS: DOXYCYCLINE HYCLATE 100 MG in D5W MINI-BAG PLUS 100 ML IV SCH ×2 (05:02→16:47)
[2022-05-27] MEDS: HEPARIN SOD (PORCINE) 5000UNITS/ML 1ML VIAL/SYRINGE SC SCH ×3 (05:02→21:17)
[2022-05-27 06:59] LABS: HEMATOCRIT 34.7 % (36.0-47.0); HEMOGLOBIN 11.4 g/dl (12.0-15.5); MEAN CORPUSCULAR HEMOGLOBIN 30.6 pg (27.0-33.0); MEAN CORPUSCULAR HGB CONC 32.9 g/dl (32.0-36.5); MEAN CORPUSCULAR VOLUME 93.3 fl (80.0-96.0); PLATELET COUNT, AUTOMATED 186 10^3/uL (150-450); RED BLOOD COUNT 3.72 10^6/uL (4.00-5.40); WHITE BLOOD COUNT 7.7 10^3/uL (4.0-10.0)
[2022-05-27] MEDS: INSULIN LISPRO (NovoLOG) PER UNIT SC SCH ×4 (07:30→21:00)
[2022-05-27 07:40] LABS: CALCIUM LEVEL 8.6 MG/DL (8.8-10.2); CREATININE FOR GFR 1.63 MG/DL (0.55-1.30); GLOMERULAR FILTRATION RATE 31.8 (>32); POTASSIUM SERUM 3.6 MEQ/L (3.5-5.1)
[2022-05-27] MEDS: DOCUSATE SODIUM 100MG CAPSULE PO SCH ×2 (08:19→21:17)
[2022-05-27] MEDS: LACTOBACILLUS ACIDOPHILUS CAP (BACID) PO SCH ×2 (08:19→16:48)
[2022-05-27] MEDS: LEVEMIR (INSULIN DETEMIR) 1 UNITS/0.01ML SC SCH (08:21)
[2022-05-27] MEDS ORDERED: POTASSIUM CHLORIDE 10MEQ SR TABLET PO ONE (13:25)
[2022-05-27] MEDS: cefTRIAXone SOD 2 GM in D5W MINI-BAG PLUS 50 ML IV SCH (13:50)
[2022-05-27] MEDS: ATORVASTATIN 20 MG TAB PO SCH (16:48)
[2022-05-27] MEDS: METOPROLOL SUCC *XL* 25MG TAB (TopROL *XL*) PO SCH (16:49)
[2022-05-27] MEDS: CLOPIDOGREL 75 MG TAB PO SCH (16:49)
[2022-05-27] MEDS: SERTRALINE HCL 50 MG TAB PO SCH (16:49)
[2022-05-28 01:54] VITALS: O2SAT 94
[2022-05-28 05:31] VITALS: BP 119/67
[2022-05-28] MEDS: DOXYCYCLINE HYCLATE 100 MG in D5W MINI-BAG PLUS 100 ML IV SCH (05:31)
[2022-05-28] MEDS: HEPARIN SOD (PORCINE) 5000UNITS/ML 1ML VIAL/SYRINGE SC SCH ×3 (05:31→21:12)
[2022-05-28 05:59] LABS: HEMATOCRIT 34.9 % (36.0-47.0); HEMOGLOBIN 11.2 g/dl (12.0-15.5); MEAN CORPUSCULAR HEMOGLOBIN 29.9 pg (27.0-33.0); MEAN CORPUSCULAR HGB CONC 32.1 g/dl (32.0-36.5); MEAN CORPUSCULAR VOLUME 93.1 fl (80.0-96.0); PLATELET COUNT, AUTOMATED 218 10^3/uL (150-450); RED BLOOD COUNT 3.75 10^6/uL (4.00-5.40); WHITE BLOOD COUNT 7.5 10^3/uL (4.0-10.0)
[2022-05-28 06:25] LABS: CREATININE FOR GFR 1.68 MG/DL (0.55-1.30); GLOMERULAR FILTRATION RATE 30.8 (>32); MAGNESIUM LEVEL 2.1 MG/DL (1.8-2.4); POTASSIUM SERUM 3.9 MEQ/L (3.5-5.1)
[2022-05-28] MEDS: INSULIN LISPRO (NovoLOG) PER UNIT SC SCH ×4 (07:30→20:29)
[2022-05-28] MEDS: DOCUSATE SODIUM 100MG CAPSULE PO SCH ×2 (08:14→21:11)
[2022-05-28] MEDS: LACTOBACILLUS ACIDOPHILUS CAP (BACID) PO SCH ×2 (08:14→17:08)
[2022-05-28] MEDS: LEVEMIR (INSULIN DETEMIR) 1 UNITS/0.01ML SC SCH (08:15)
[2022-05-28 09:48] LABS: C REACTIVE PROTEIN QUANTITATIV 12.3 MG/DL (0.00-0.30)
[2022-05-28 09:59] LABS: ERYTHROCYTE SEDIMENTATION RATE 80 mm/hr (0-30)
[2022-05-28 14:00] VITALS: BP 118/67
[2022-05-28] MEDS: LevoFLOXacin 750 MG TABLET PO SCH (17:08)
[2022-05-28] MEDS: SERTRALINE HCL 50 MG TAB PO SCH (17:08)
[2022-05-28] MEDS: ATORVASTATIN 20 MG TAB PO SCH (17:08)
[2022-05-28] MEDS: CLOPIDOGREL 75 MG TAB PO SCH (17:08)
[2022-05-28] MEDS: METOPROLOL SUCC *XL* 25MG TAB (TopROL *XL*) PO SCH (17:08)
[2022-05-28 22:00] VITALS: BP 118/65
[2022-05-29 06:00] VITALS: BP 128/69
[2022-05-29 06:12] LABS: HEMATOCRIT 36.3 % (36.0-47.0); HEMOGLOBIN 11.6 g/dl (12.0-15.5); MEAN CORPUSCULAR HEMOGLOBIN 29.6 pg (27.0-33.0); MEAN CORPUSCULAR VOLUME 92.6 fl (80.0-96.0); PLATELET COUNT, AUTOMATED 237 10^3/uL (150-450); RED BLOOD COUNT 3.92 10^6/uL (4.00-5.40); WHITE BLOOD COUNT 7.2 10^3/uL (4.0-10.0)
[2022-05-29] MEDS: HEPARIN SOD (PORCINE) 5000UNITS/ML 1ML VIAL/SYRINGE SC SCH ×3 (06:18→21:08)
[2022-05-29 06:35] LABS: CALCIUM LEVEL 9.2 MG/DL (8.8-10.2); CREATININE FOR GFR 1.23 MG/DL (0.55-1.30); GLOMERULAR FILTRATION RATE 44.1 (>32); POTASSIUM SERUM 3.7 MEQ/L (3.5-5.1)
[2022-05-29 07:15] VITALS: BP 140/88
[2022-05-29] MEDS: LACTOBACILLUS ACIDOPHILUS CAP (BACID) PO SCH ×2 (08:14→17:29)
[2022-05-29] MEDS: DOCUSATE SODIUM 100MG CAPSULE PO SCH ×2 (08:14→21:08)
[2022-05-29] MEDS: LEVEMIR (INSULIN DETEMIR) 1 UNITS/0.01ML SC SCH (08:54)
[2022-05-29] MEDS: INSULIN LISPRO (NovoLOG) PER UNIT SC SCH ×4 (08:54→21:00)
[2022-05-29 14:16] VITALS: BP 108/58
[2022-05-29] MEDS: SERTRALINE HCL 50 MG TAB PO SCH (17:28)
[2022-05-29] MEDS: CLOPIDOGREL 75 MG TAB PO SCH (17:28)
[2022-05-29] MEDS: ATORVASTATIN 20 MG TAB PO SCH (17:29)
[2022-05-29] MEDS: METOPROLOL SUCC *XL* 25MG TAB (TopROL *XL*) PO SCH (17:31)
[2022-05-29 19:41] VITALS: BP 129/76
[2022-05-30] MEDS: HEPARIN SOD (PORCINE) 5000UNITS/ML 1ML VIAL/SYRINGE SC SCH ×3 (05:13→22:17)
[2022-05-30 06:00] VITALS: BP 121/73
[2022-05-30 06:03] LABS: BASO # 0.1 10^3/uL (0.0-0.2); BASO % 0.8 % (0.0-1.0); EOS # 0.2 10^3/uL (0.0-0.5); EOS % 2.9 % (0.0-3.0); HEMATOCRIT 34.8 % (36.0-47.0); HEMOGLOBIN 11.3 g/dl (12.0-15.5); LYMPH # 1.1 10^3/uL (1.5-5.0); LYMPH % 16.2 % (24.0-44.0); MEAN CORPUSCULAR HEMOGLOBIN 29.9 pg (27.0-33.0); MEAN CORPUSCULAR HGB CONC 32.5 g/dl (32.0-36.5); MEAN CORPUSCULAR VOLUME 92.1 fl (80.0-96.0); MONO # 0.5 10^3/uL (0.0-0.8); MONO % 8.2 % (2.0-8.0); NEUTROPHILS # 4.7 10^3/uL (1.5-8.5); NEUTROPHILS % 71.4 % (36.0-66.0); PLATELET COUNT, AUTOMATED 245 10^3/uL (150-450); RED BLOOD COUNT 3.78 10^6/uL (4.00-5.40); WHITE BLOOD COUNT 6.6 10^3/uL (4.0-10.0)
[2022-05-30 06:37] LABS: C REACTIVE PROTEIN QUANTITATIV 7.7 MG/DL (<1.0); CALCIUM LEVEL 8.6 MG/DL (8.3-10.6); CREATININE FOR GFR 1.31 MG/DL (0.55-1.30); POTASSIUM SERUM 3.8 MMOL/L (3.5-5.1)
[2022-05-30] MEDS: INSULIN LISPRO (NovoLOG) PER UNIT SC SCH ×4 (08:00→21:00)
[2022-05-30] MEDS: LEVEMIR (INSULIN DETEMIR) 1 UNITS/0.01ML SC SCH (09:40)
[2022-05-30] MEDS: DOCUSATE SODIUM 100MG CAPSULE PO SCH ×2 (09:40→22:17)
[2022-05-30] MEDS: LACTOBACILLUS ACIDOPHILUS CAP (BACID) PO SCH ×2 (09:40→17:00)
[2022-05-30 14:00] VITALS: BP 122/71
[2022-05-30] MEDS: LevoFLOXacin 750 MG TABLET PO SCH (17:00)
[2022-05-30] MEDS: CLOPIDOGREL 75 MG TAB PO SCH (17:00)
[2022-05-30] MEDS: METOPROLOL SUCC *XL* 25MG TAB (TopROL *XL*) PO SCH (17:00)
[2022-05-30] MEDS: SERTRALINE HCL 50 MG TAB PO SCH (17:00)
[2022-05-30] MEDS: ATORVASTATIN 20 MG TAB PO SCH (17:01)
[2022-05-30 22:00] VITALS: BP 110/61
[2022-05-31] VITALS (9 sets, daily range): BP systolic 118–145; BP diastolic 62–75; O2SAT 93
[2022-05-31] MEDS: HEPARIN SOD (PORCINE) 5000UNITS/ML 1ML VIAL/SYRINGE SC SCH ×3 (05:40→20:49)
[2022-05-31 06:10] LABS: BASO # 0.1 10^3/uL (0.0-0.2); BASO % 0.6 % (0.0-1.0); EOS # 0.2 10^3/uL (0.0-0.5); EOS % 2.3 % (0.0-3.0); HEMATOCRIT 36.2 % (36.0-47.0); HEMOGLOBIN 11.4 g/dl (12.0-15.5); LYMPH # 1.1 10^3/uL (1.5-5.0); LYMPH % 12.9 % (24.0-44.0); MEAN CORPUSCULAR HEMOGLOBIN 29.5 pg (27.0-33.0); MEAN CORPUSCULAR HGB CONC 31.5 g/dl (32.0-36.5); MEAN CORPUSCULAR VOLUME 93.8 fl (80.0-96.0); MONO # 0.5 10^3/uL (0.0-0.8); MONO % 5.6 % (2.0-8.0); NEUTROPHILS # 6.8 10^3/uL (1.5-8.5); NEUTROPHILS % 78.3 % (36.0-66.0); PLATELET COUNT, AUTOMATED 266 10^3/uL (150-450); RED BLOOD COUNT 3.86 10^6/uL (4.00-5.40); WHITE BLOOD COUNT 8.7 10^3/uL (4.0-10.0)
[2022-05-31] MEDS: INSULIN LISPRO (NovoLOG) PER UNIT SC SCH ×3 (07:30→17:36)
[2022-05-31 07:32] LABS: CALCIUM LEVEL 9.1 MG/DL (8.3-10.6); CREATININE FOR GFR 1.34 MG/DL (0.55-1.30); GLOMERULAR FILTRATION RATE 39.9 (>32); POTASSIUM SERUM 4.5 MMOL/L (3.5-5.1)
[2022-05-31] MEDS: DOCUSATE SODIUM 100MG CAPSULE PO SCH ×2 (08:56→20:50)
[2022-05-31] MEDS: LACTOBACILLUS ACIDOPHILUS CAP (BACID) PO SCH ×2 (08:56→17:35)
[2022-05-31] MEDS: LEVEMIR (INSULIN DETEMIR) 1 UNITS/0.01ML SC SCH (08:58)
[2022-05-31 16:09] LABS: BODY FLUID CULTURE Not indicated. (.); LEGIONELLA ANTIGEN URINE Negative (Negative); ORGANISM ID Not indicated. (.); SPECIMEN SOURCE Urine (.); URINE STREP PNEUMONIAE ANTIGEN Negative (Negative)
[2022-05-31] MEDS: CLOPIDOGREL 75 MG TAB PO SCH (17:35)
[2022-05-31] MEDS: SERTRALINE HCL 50 MG TAB PO SCH (17:35)
[2022-05-31] MEDS: ATORVASTATIN 20 MG TAB PO SCH (17:35)
[2022-05-31] MEDS: METOPROLOL SUCC *XL* 25MG TAB (TopROL *XL*) PO SCH (17:35)
[2022-06-01 00:32] VITALS: O2SAT 93
[2022-06-01] MEDS: HEPARIN SOD (PORCINE) 5000UNITS/ML 1ML VIAL/SYRINGE SC SCH (05:50)
[2022-06-01 06:00] VITALS: BP 145/77
[2022-06-01 06:08] LABS: BASO # 0.1 10^3/uL (0.0-0.2); BASO % 0.7 % (0.0-1.0); EOS # 0.3 10^3/uL (0.0-0.5); EOS % 2.8 % (0.0-3.0); HEMATOCRIT 36.6 % (36.0-47.0); HEMOGLOBIN 11.6 g/dl (12.0-15.5); LYMPH # 1.7 10^3/uL (1.5-5.0); LYMPH % 15.6 % (24.0-44.0); MEAN CORPUSCULAR HGB CONC 31.7 g/dl (32.0-36.5); MEAN CORPUSCULAR VOLUME 94.6 fl (80.0-96.0); MONO # 0.6 10^3/uL (0.0-0.8); MONO % 5.5 % (2.0-8.0); PLATELET COUNT, AUTOMATED 339 10^3/uL (150-450); RED BLOOD COUNT 3.87 10^6/uL (4.00-5.40); WHITE BLOOD COUNT 10.7 10^3/uL (4.0-10.0)
[2022-06-01] MEDS: INSULIN LISPRO (NovoLOG) PER UNIT SC SCH (07:30)
[2022-06-01] MEDS ORDERED: LANTINJ4 SC (07:36)
[2022-06-01] MEDS ORDERED: DOK100TA2 PO (07:36)
[2022-06-01] MEDS ORDERED: LEVO1TAB40 PO ×2 (07:36→12:14)
[2022-06-01 07:42] LABS: CALCIUM LEVEL 8.9 MG/DL (8.3-10.6); CREATININE FOR GFR 1.46 MG/DL (0.55-1.30); GLOMERULAR FILTRATION RATE 36.2 (>32); POTASSIUM SERUM 4.5 MMOL/L (3.5-5.1)
[2022-06-01] MEDS: LACTOBACILLUS ACIDOPHILUS CAP (BACID) PO SCH (08:43)
[2022-06-01] MEDS: LEVEMIR (INSULIN DETEMIR) 1 UNITS/0.01ML SC SCH (08:43)
[2022-06-01] MEDS: DOCUSATE SODIUM 100MG CAPSULE PO SCH (08:43)
[2022-06-01] MEDS ORDERED: RISATAB3 PO ×2 (10:48→12:14)
[2022-06-01] MEDS ORDERED: METO25TA PO ×2 (10:48→12:14)
== END 2022-06-01 12:26 | disposition home health service (06) | DRG 193 ==
LOC: M ED 16:24 → EDBD 16:24 → M ED INP 22:00 → ENRESERV 05-23 12:21 → M PCU 05-23 15:04 → M MSPAV 05-27 17:40
PROVIDERS: ADMIT Family Medicine; ATTEND Internal Medicine Nephrology
DX: J18.9 Pneumonia, unspecified organism (principal); I50.33 Acute on chronic diastolic (congestive) heart failure; J96.01 Acute respiratory failure with hypoxia; G93.41 Metabolic encephalopathy; I13.0 Hypertensive heart and chronic kidney disease with heart failure and stage 1 through stage 4 chronic kidney disease, or unspecified chronic kidney disease; I24.8 Other forms of acute ischemic heart disease; N17.9 Acute kidney failure, unspecified; I44.2 Atrioventricular block, complete; E11.22 Type 2 diabetes mellitus with diabetic chronic kidney disease; E03.9 Hypothyroidism, unspecified; J84.10 Pulmonary fibrosis, unspecified; E78.5 Hyperlipidemia, unspecified; R29.6 Repeated falls; E87.6 Hypokalemia; I35.2 Nonrheumatic aortic (valve) stenosis with insufficiency; I25.10 Atherosclerotic heart disease of native coronary artery without angina pectoris; F32.A Depression, unspecified; Z66 Do not resuscitate; N18.30 Chronic kidney disease, stage 3 unspecified; R27.0 Ataxia, unspecified; D64.9 Anemia, unspecified; F41.9 Anxiety disorder, unspecified; E66.9 Obesity, unspecified; E11.40 Type 2 diabetes mellitus with diabetic neuropathy, unspecified; R91.8 Other nonspecific abnormal finding of lung field; I25.2 Old myocardial infarction; Z79.02 Long term (current) use of antithrombotics/antiplatelets; Z79.4 Long term (current) use of insulin; Z95.0 Presence of cardiac pacemaker; Z79.899 Other long term (current) drug therapy; Z88.2 Allergy status to sulfonamides; Z88.5 Allergy status to narcotic agent; Z88.8 Allergy status to other drugs, medicaments and biological substances; Z98.49 Cataract extraction status, unspecified eye; Z85.3 Personal history of malignant neoplasm of breast; Z86.73 Personal history of transient ischemic attack (TIA), and cerebral infarction without residual deficits; Z68.29 Body mass index [BMI] 29.0-29.9, adult